=== PATIENT | female | born 1940 | race Hispanic/Latino ===

== ENCOUNTER 2017-07-07 19:18 | Emergency (ER) | payer MEDICARE, MEDICAID ==
[2017-07-07 20:11] LABS: #Basophils 0.1 thou/uL (0.0-0.2); #Eosinphils 0.1 thou/uL (0.0-0.7); #Lymphocytes 2.8 thou/uL (1.20-3.40); #Monocytes 0.7 thou/uL (0.11-0.59); #Neutrophils 3.1 thou/uL (1.40-6.50); %Basophils 1.3 % (0.0-1.0); %Eosinophils 1.2 % (0.0-10.0); %Lymphocytes 41.5 % (21.0-51.0); Hemoglobin 11.9 g/dL (12.0-16.0); Mean Corpuscular HGB CONC 35.9 g/dL (32.0-36.0); Mean Corpuscular Volume 86.4 fl (81.0-99.0); Mean Platelet Volume 7.8 fL (7.4-10.4); Platelet Count 182 thou/uL (130-400); Red Blood Cell (RBC) Count 3.84 mill/uL (4.20-5.40); White Blood Cell (WBC) Count 6.7 thou/uL (4.8-10.8)
--- NOTE | 2017-07-07 20:18 | RAD ---
PORTABLE CHEST: HISTORY: Hypertension. COMPARISON: 10/01/2015 FINDINGS: The heart size is mildly prominent. There is mild vascular engorgement. There is some interstitial prominence that may represent mild congestion. No focal infiltrate or significant effusion. POS: [facility]
[2017-07-07 20:30] LABS: CK (CPK) 52 U/L (29-168); Lipase 45 U/L (8-78)
[2017-07-07 20:33] LABS: Troponin I Less than 0.010 ng/mL (< 0.028)
[2017-07-07] MEDS ORDERED: Acetaminophen 500 MG TAB ONE (20:36)
[2017-07-07] MEDS ORDERED: Metoclopramide HCl 10 MG/2 ML VIAL ONE (20:36)
[2017-07-07] MEDS ORDERED: diphenhydrAMINE 50 MG/ML VIAL ONE (20:36)
[2017-07-07 20:38] LABS: ALT (SGPT) 8 U/L (8-55); AST (SGOT) 20 U/L (5-34); Albumin 3.7 g/dL (3.4-4.8); Alkaline Phosphatase 73 U/L (40-150); Anion Gap 14 mmol/L (10-20); BUN (Urea Nitrogen) 20 mg/dL (9.8-20.1); Bilirubin, Total 0.2 mg/dL (0.2-1.2); Calc. Creatinine Clearance 0 mL/min (70-130); Calcium 8.7 mg/dL (7.8-10.44); Carbon Dioxide 22 mmol/L (23-31); Chloride 109 mmol/L (98-107); Estimated GFR-MDRD 54; Globulin 2.6 g/dL (2.4-3.5); Glucose 93 mg/dL (83-110); Potassium 3.9 mmol/L (3.5-5.1); Protein, Total 6.3 g/dL (6.0-8.3); Sodium 141 mmol/L (136-145)
--- NOTE | 2017-07-07 21:21 | CT ---
BRAIN CT WITH IV CONTRAST: HISTORY: A 77-year-old female with a history of a headache and left-sided head and neck shoulder pain for one day. COMPARISON: 04/25/2013 FINDINGS: No focal mass or midline shift. No intraaxial or extraaxial hemorrhage. The sinuses and mastoids ar e clear of acute process. IMPRESSION: 1. No acute intracranial process. 2. No mass or bleed. POS: H
--- NOTE | 2017-07-07 21:23 | CT ---
CERVICAL SPINE CT SCAN WITHOUT IV CONTRAST: HISTORY: A 77-year-old female with a history of headache and left-sided head, neck, and shoulder pain. FINDINGS: There is some heterogeneous bony demineralization. No evidence for acute fracture or facet dislocati on. Disk osteophytosis at C5-C6 with moderate stenosis of the central canal and lateral recesses. IMPRESSION: 1. No fracture or facet dislocation. 2. Bony demineralization. 3. Spondylosis with disk osteophytosis at C5-C6 with moderate canal and lateral recess stenosis. POS: PRABHJOT
== END 2017-07-07 22:55 | disposition home or self-care (01) ==
LOC: ERS 19:18
DX: M47.22 Other spondylosis with radiculopathy, cervical region (principal); E78.5 Hyperlipidemia, unspecified; I10 Essential (primary) hypertension; Z79.899 Other long term (current) drug therapy
CPT/HCPCS: 70450; 71045; 72125; 82553; 83690; 84484; 85025; 93005; 96365; 96375; J1200; J2765

== ENCOUNTER 2018-05-14 13:33 | Inpatient (IN) | payer MEDICARE, MEDICAID ==
[~2018-05-14 13:33] MED LIST: ISOVUE-370 76%-LOCM 1 ML ONE
[2018-05-14 14:21] LABS: #Basophils 0.1 thou/uL (0.0-0.2); #Eosinphils 0.1 thou/uL (0.0-0.7); #Lymphocytes 1.2 thou/uL (1.20-3.40); #Monocytes 0.5 thou/uL (0.11-0.59); #Neutrophils 3.3 thou/uL (1.40-6.50); %Basophils 1.1 % (0.0-1.0); %Eosinophils 2.1 % (0.0-10.0); %Lymphocytes 23.7 % (21.0-51.0); %Monocytes 9.3 % (0.0-10.0); %Neutrophils 63.8 % (42.0-75.0); Hemoglobin 13.1 g/dL (12.0-16.0); Mean Corpuscular HGB CONC 33.6 g/dL (32.0-36.0); Mean Corpuscular Hemoglobin 29.2 pg (27.0-31.0); Mean Corpuscular Volume 86.9 fL (78.0-98.0); Mean Platelet Volume 7.6 fL (7.4-10.4); Platelet Count 197 thou/uL (130-400); RBC Distribution Width 11.1 % (11.5-14.5); Red Blood Cell (RBC) Count 4.48 mill/uL (4.20-5.40); White Blood Cell (WBC) Count 5.2 thou/uL (4.8-10.8)
[2018-05-14 14:42] LABS: ALT (SGPT) 12 U/L (8-55); AST (SGOT) 24 U/L (5-34); Albumin 4.3 g/dL (3.4-4.8); Alkaline Phosphatase 72 U/L (40-150); Anion Gap 10 mmol/L (10-20); BUN (Urea Nitrogen) 18 mg/dL (9.8-20.1); Bilirubin, Total 0.3 mg/dL (0.2-1.2); Calc. Creatinine Clearance 0 mL/min (70-130); Calcium 9.4 mg/dL (7.8-10.44); Carbon Dioxide 27 mmol/L (23-31); Chloride 106 mmol/L (98-107); Estimated GFR-MDRD 60; Globulin 2.7 g/dL (2.4-3.5); Glucose 127 mg/dL (83-110); Sodium 139 mmol/L (136-145)
[2018-05-14 15:21] LABS: Bilirubin Negative (Negative); Blood, Urine Negative (Negative); Clarity CLEAR (Clear); Glucose, Urine (Dipstick) Negative (Negative); Leukocyte Negative (Negative); Nitrite Negative (Negative); Protein, Urine (Dipstick) Negative (Neg-Trace); Specific Gravity, Urine 1.007 (1.002-1.036); Urobilinogen 0.2 mg/dL (0.2-1.0); pH, Urine 7.5 (5.0-9.0)
[2018-05-14] MEDS ORDERED: Ondansetron PF 4 MG/2 ML Vial ONE (15:33)
[2018-05-14] MEDS ORDERED: Meclizine HCl 25 MG TAB ONE (15:33)
--- NOTE | 2018-05-14 15:58 | RAD ---
CHEST 1 VIEW: HISTORY: Near syncope and dizziness. COMPARISON: 07/07/2017. FINDINGS: Bilateral vascular congestion, interstitial and alveolar edema, and bilateral pleural effusions with prominent heart size certainly raising concern for congestive heart failure with pulmonary edema. IMPRESSION: Postop midline sternotomy. Cardiomegaly with vascular congestion, edema, and pleural effusions, evid ence for congestive heart failure. Continued short-term followup for clearing or stability. POS: [facility]
--- NOTE | 2018-05-14 16:24 | CT ---
CT BRAIN 05/14/18 PROVIDED CLINICAL HISTORY: Dizziness. FINDINGS: Comparison 07/07/17. The ventricular system appears normal in size and morphology. There is no evidence for intracranial h emorrhage or mass effect. Chronic microvascular ischemic changes are seen involving the cerebral whit e matter. The extracranial soft tissues and osseous structures demonstrate unremarkable CT appearance . IMPRESSION: No evidence for intracranial hemorrhage or mass effect. POS: [facility]
[2018-05-14] MEDS ORDERED: Aspirin Chewable 81 MG TAB ONE (17:12)
[2018-05-14 18:41] LABS: Troponin I Less than 0.010 ng/mL (< 0.028)
[2018-05-14 21:00] LABS: Troponin I Less than 0.010 ng/mL (< 0.028)
--- NOTE | 2018-05-14 21:12 | PDOC.FPRHP ---
- History of Present Illness Chief Complaint: dizziness History of Present Illness: This is a 78 yo F who presents with a CC of near syncope and dizziness. The patient states that around 1230pm today she started feeling as if the room was spinning and her vision went black. Patient was sitting watching TV when this started. She had no NV, chest pain or palpitations at that time. The patient was able to walk to a neighbors for help. She states that she felt unbalanced when she was walking. She was able to see okay, but the spinning persisted. She states that the episode lasted about 25 min. The patient endorses feeling dizzy before, this occurred at night and would usually go away quickly. The patient has had these nightly episodes for the last 3 nights. This episode lasted much longer and was worse. The patient also endorses ringing in her ears. - Allergies/Adverse Reactions Allergies Allergy/AdvReac Type Severity Reaction Status Date / Time No Known Allergies Allergy Verified 07/24/14 03:09 - Home Medications Medication Instructions Recorded Confirmed Type Rosuvastatin [Crestor] 20 mg PO HS 07/24/14 05/14/18 History Propranolol HCl 20 mg PO DAILY 05/14/18 05/14/18 History - History PMHx: HTN, HLD PSHx: none FHx: non contributory Social: denies alcoho, tobacco, or drug use - Review of Systems General: denies: fever/chills, weight/appetite/sleep changes, night sweats Eyes: reports: vision changes ENT: denies: nasal congestion, rhinorrhea Respiratory: denies: cough, congestion, shortness of breath Cardiovascular: reports: palpitation. denies: chest pain, edema, paroxysmal nocturnal dyspnea Gastrointestinal: reports: constipation. denies: nausea, vomiting, diarrhea Genitourinary: denies: dysuria Skin: denies: rashes, lesions Musculoskeletal: denies: stiffness, swelling Neurological: reports: weakness. denies: numbness, syncope, seizure - Vital signs BP: 192/73 HR: 56 RR: 16 Tmax: 98.3 Pox: 97% on RA Wt: 74.8kg - Physical Exam Constitutional: NAD, awake, alert and oriented, well developed HEENT: normocephalic and atraumatic, PERRLA, EOMI, grossly normal vision, grossly normal hearing, normal nasal mucosa, MMM Neck: supple, FROM, trachea midline Chest: no-tender to palpation, no lesions Heart: RRR, normal S1/S2, no murmurs/rubs/gallops, pulses present, no edema Lungs: CTAB, no respiratory distress, good air movement, no rales/rhonchi, no wheezing, no retractions Abdomen: soft, non-tender, bowel sounds present, no masses/distention, no hernias Musculoskeletal: normal structure, normal tone Neurological: no focal deficit, CN II-XII intact, normal sensation, DTRs 2+ -Neurological: no nystagmus, test of skew neg, head impulse negative Skin: no rash/lesions, good turgor, capillary refill <2 seconds, no jaundice Psychiatric: normal mood and affect FMR H&P: Results - Labs Result Diagrams: 05/15/18 05:10 05/15/18 05:10 Lab results: WBC 5.2 thou/uL (4.8-10.8) 05/14/18 14:13 Hgb 13.1 g/dL (12.0-16.0) 05/14/18 14:13 Hct 39.0 % (36.0-47.0) 05/14/18 14:13 MCV 86.9 fL (78.0-98.0) 05/14/18 14:13 Plt Count 197 thou/uL (130-400) 05/14/18 14:13 Neutrophils % 63.8 % (42.0-75.0) 05/14/18 14:13 Sodium 139 mmol/L (136-145) 05/14/18 14:13 Potassium 4.0 mmol/L (3.5-5.1) 05/14/18 14:13 Chloride 106 mmol/L (98-107) 05/14/18 14:13 Carbon Dioxide 27 mmol/L (23-31) 05/14/18 14:13 BUN 18 mg/dL (9.8-20.1) 05/14/18 14:13 Creatinine 0.91 mg/dL (0.6-1.1) 05/14/18 14:13 Glucose 127 mg/dL (83-110) H 05/14/18 14:13 Calcium 9.4 mg/dL (7.8-10.44) 05/14/18 14:13 Total Bilirubin 0.3 mg/dL (0.2-1.2) 05/14/18 14:13 AST 24 U/L (5-34) 05/14/18 14:13 ALT 12 U/L (8-55) 05/14/18 14:13 Alkaline Phosphatase 72 U/L (40-150) 05/14/18 14:13 B-Natriuretic Peptide 109.4 pg/mL (0-100) H 05/14/18 14:13 Serum Total Protein 7.0 g/dL (6.0-8.3) 05/14/18 14:13 Albumin 4.3 g/dL (3.4-4.8) 05/14/18 14:13 Urine Ketones Negative mg/dL (Negative) 05/14/18 15:07 Urine Blood Negative (Negative) 05/14/18 15:07 Urine Nitrite Negative (Negative) 05/14/18 15:07 Ur Leukocyte Esterase Negative (Negative) 05/14/18 15:07 FMR H&P: A/P - Problem List (1) Near syncope Current Visit: Yes Status: Acute (2) CKD (chronic kidney disease) stage 2, GFR 60-89 ml/min Current Visit: No Status: Chronic Code(s): N18.2 - CHRONIC KIDNEY DISEASE, STAGE 2 (MILD) (3) HLD (hyperlipidemia) Current Visit: No Status: Chronic Code(s): E78.5 - HYPERLIPIDEMIA, UNSPECIFIED (4) HTN (hypertension) Current Visit: No Status: Chronic Code(s): I10 - ESSENTIAL (PRIMARY) HYPERTENSION (5) Hypertensive urgency Current Visit: Yes Status: Acute Code(s): I16.0 - HYPERTENSIVE URGENCY - Plan Near syncope w/ dizziness Unknown etiology at this time. Differential dx includes vertigo, basilar stroke , or HTN emergency. CT showing no acute process. - Will obtain CTA head/neck, MRI, and echo for possible etiology - BNP is elevated - will obtain echo - Will obtain orthostatic BP - AM Lipid panel - can consider neuro consult in AM HTN urgency - Will give SL nitro - Will allow for permissive HTN - Can give hydralazine PRN for SBP > 220 and DBP > 120 CKD - Will continue to monitor, Cr 0.91 on admission HTN - aware, continue home meds HLD - aware, continue home meds DISPO: admit to stroke, obs DVT ppx: lovenox GI ppx: none Diet: Reg CODE: FULL Case discussed with Dr. Hunter FMR H&P: Upper Level - Pertinent history 78F presents for 3 days of presyncope, with an acute worsening event at 1200 on day of admission. Exacerbated by movement. Associated by dizziness. She had not had similar symptom before. She had denies fever, headache, tinnitus, chest pain , neck pain, diarrhea, dysuria. Possibly had weight loss but unable to describe extent of this. ER physician stated that they had a positive HiNTS exam, concerning for posterior stroke. In ER, CT w/o contrast was negative. CXR is unclear. Patient has no stated surgical history but xray mention she has post-sternomy changes. There was no scaring on her chest. UA was negative. Chemistry positive for indeterminate BNP of 109. CBC wnl. Vitals BP 146/69, Pulse 51, Resp 18, Temp 98.8, O2 94% on RA Gen: Alert, oriented cheerful HEENT: Vision and hearing grossly intact. Moist mucosal membrane CV: RRR with no apparent m/g/r Resp: CTA bilat Ext: No edema Neuro: CN II-XII intact. Strength 5/5 in upper/lower ext. Tone appropriate. No cerebellar deficiency. HiNTS exam neg. A/P 1. Rule out Posterior Stroke - CTA neg - At this time, there exam no longer support posterior stroke but possibility she did have it earlier. - Considered BPPV, patient unable to tolerate janeth-halpike - Plan, obtain MRI tomorrow. Consider consult neuro - Follow up on risk factor such as HLD and optimize med management of stroke 2. Pre-syncope - Admit to stroke obs to rule out cardiac dysrhythmia - Obtain echo to work up cardiac structural disorders, - Orthostatic vital to rule out hypovolemia 3. Indeterminate BNP, rule out CHF - Will obtain echo 4. HTN Urgency - BP elevation over 180 systolic noted in ER, may be part of her pre-syncope issue and is stroke risk - Plan for permissive HTN until 1200 on 05/15/18. Then may lower BP by 20% at most, resume home medication See seo intern note for chronic issues. - Plan Date/Time: 05/14/182107 I, [Bong Meadows], have evaluated this patient and agree with findings/plan as outlined by seo intern resident. Pertinent changes/additions are listed here. Addendum - Attending - Attending Attestation Date/Time: 05/14/18 [id number] I personally evaluated the patient and discussed the management with Dr. Guerra and Dr. Meadows I agree with the History, Examination, Assessment and Plan documented above with any addition or exceptions noted below. 78 yo female with hx of HTN and CKD was transferred from [facility] ER for evaluation of central dizziness. Per ER MD exam positive findings suggestive of central over peripheral findings. Patient reports 3 day history of nightly dizziness that has been resolving quickly. Today at 1230 her vision went black and she began to feel dizzy. Described as room spinning and feeling off balanced. Last almost 30 mins. Associated symptoms include ringing or pulse in ears. Patient has presented to ER in the past for similar complaints. VS, Labs, Imaging reviewed. NAD. RRR. no murmurs CTAB no w/c/r Negative neuro exam. No nystagmus. Eyes stayed focused on tilt exams and with head movement. Vertigo: Appears peripheral on current exam. CT brain negative. CT head and neck negative ruling out aneurysm, stenosis, or thrombus. Will add MRI in am to further evaluate brain structures, infarct, masses. Unable to evaluate hearing at this time but will need audiology performed. Will treat symptoms. HTN urgency: Consider permissive HTN at this time. Will treat to keep BP around 160 tonight. Elevated BNP. Likely related to strain but will order ECHO to evaluate cardiac structure to further determine CV risk. CKD II: Stable. Adjust home meds at needed. Montior overnight. Likely d/c tomorrow after results of MRI if no significant findings identified. Will need outpatient audiology. Denzel
[2018-05-14] MEDS ORDERED: Nitroglycerin 0.4 MG TAB (25 Tab Bottle) SL PRN (21:13)
--- NOTE | 2018-05-14 22:25 | CT ---
CT ANGIOGRAM HEAD WITH IV CONTRAST AND 3D RECONSTRUCTIONS CT ANGIOGRAM NECK WITH IV CONTRAST AND 3D RECONSTRUCTIONS 05/14/18 HISTORY: Dizziness, syncope. CT HEAD: The bilateral anterior cerebral and middle cerebral arteries are patent. The distal vertebral arterie s and basilar artery are patent. The bilateral posterior cerebral and superior cerebellar arteries ap pear patent. No focal branch occlusion or significant narrowing is seen. No aneurysm is seen within t he limitations of the technique of this exam. CT ANGIOGRAM NECK: FINDINGS: There is a normal arrangement of the great vessels at the aortic arch which are patent. Bilateral sub clavian arteries are patent. The innominate artery as well as bilateral common carotid arteries are p atent. There is mild atherosclerotic calcification and plaque involving the proximal left internal carotid a rtery, but there is much less than 50% maximal stenosis involving the left internal carotid based on NASCET criteria. The right internal carotid artery is patent without focal stenosis according to NASC ET criteria. The vertebral arteries are codominant and patent bilaterally. The proximal left vertebral artery is t ortuous. The proximal thoracic esophagus does appear to demonstrate mild wall thickening although this could b e related to transient finding due to peristalsis, but this is difficult to further evaluate. Thyroid gland as well as bilateral parotid and submandibular glands have a normal CT appearance. No e nlarged lymph nodes are seen. Degenerative changes are seen at the C5-6 level related to narrowing of the intervertebral disc space and end plate degenerative changes as well as posterior osteophyte formation. IMPRESSION: 1. Patent bilateral internal carotid arteries based on NASCET criteria. 2. Patient bilateral vertebral arteries. 3. There is no focal stenosis or branch occlusion involving the [place] or vertebrobasi lar system. 4. Mild ground glass and linear densities in the upper lobes probably to atelectasis. 5. Suggested mild thickening involving the proximal thoracic esophagus, but this may be a transi ent finding and this is difficult to further evaluate on this exam. POS: PRABHJOT
[2018-05-14 23:50] VITALS: BMI 24.2
[2018-05-15] MEDS ORDERED: hydrALAZINE 20 MG/ML VIAL SLOW IVP PRN (00:19)
[2018-05-15 05:36] LABS: #Basophils 0.1 thou/uL (0.0-0.2); #Eosinphils 0.1 thou/uL (0.0-0.7); #Lymphocytes 1.7 thou/uL (1.20-3.40); #Monocytes 0.6 thou/uL (0.11-0.59); #Neutrophils 2.2 thou/uL (1.40-6.50); %Basophils 1.5 % (0.0-1.0); %Eosinophils 2.3 % (0.0-10.0); %Lymphocytes 36.9 % (21.0-51.0); %Monocytes 12.2 % (0.0-10.0); %Neutrophils 47.1 % (42.0-75.0); Hemoglobin 12.3 g/dL (12.0-16.0); Mean Corpuscular Hemoglobin 29.8 pg (27.0-31.0); Mean Corpuscular Volume 87.6 fL (78.0-98.0); Mean Platelet Volume 7.6 fL (7.4-10.4); Platelet Count 170 thou/uL (130-400); RBC Distribution Width 11.2 % (11.5-14.5); Red Blood Cell (RBC) Count 4.15 mill/uL (4.20-5.40); White Blood Cell (WBC) Count 4.6 thou/uL (4.8-10.8)
[2018-05-15 05:46] LABS: INR-International Normal Ratio 1.1; PTT 27.9 SEC (22.9-36.1)
[2018-05-15 05:56] LABS: Anion Gap 11 mmol/L (10-20); BUN (Urea Nitrogen) 14 mg/dL (9.8-20.1); Calc. Creatinine Clearance 54 mL/min (70-130); Calcium 9.4 mg/dL (7.8-10.44); Carbon Dioxide 25 mmol/L (23-31); Cardiac Risk 2.9 (Less than 4.5); Chloride 108 mmol/L (98-107); Cholesterol 122 mg/dl (< 200 Desired); Estimated GFR-MDRD 68; Glucose 80 mg/dL (83-110); HDL Cholesterol 42 mg/dL (>60 Neg Risk); LDL Cholesterol, Calculated 62 mg/dL; Potassium 3.4 mmol/L (3.5-5.1); Sodium 141 mmol/L (136-145); Triglycerides 92 mg/dL (Less than 150)
--- NOTE | 2018-05-15 06:32 | PDOC.FM ---
- Subjective Subjective: No overnight events. Feeling well. No dizziness, lightheadedness. - Objective MAR Reviewed: Yes Vital Signs & Weight: Vital Signs (12 hours) Temp Pulse Resp BP Pulse Ox 05/15/18 04:00 98.2 F 60 20 147/67 H 99 05/15/18 00:00 97.6 F 52 L 20 147/70 H 96 05/14/18 23:20 96 05/14/18 22:45 97.5 F L 51 L 18 198/86 H 95 Weight Weight 60.044 kg Result Diagrams: 05/15/18 05:10 05/15/18 05:10 Phys Exam - Physical Examination Constitutional: NAD HEENT: moist MMs Neck: supple Respiratory: no wheezing, clear to auscultation bilateral Cardiovascular: RRR, no significant murmur Gastrointestinal: soft, non-tender, positive bowel sounds Musculoskeletal: no edema Neurological: moves all 4 limbs Psychiatric: normal affect Skin: normal turgor Dx/Plan (1) Hypertensive urgency Code(s): I16.0 - HYPERTENSIVE URGENCY Status: Acute (2) Near syncope Status: Acute (3) Atypical angina Code(s): I20.8 - OTHER FORMS OF ANGINA PECTORIS Status: Acute (4) CKD (chronic kidney disease) stage 2, GFR 60-89 ml/min Code(s): N18.2 - CHRONIC KIDNEY DISEASE, STAGE 2 (MILD) Status: Chronic (5) HLD (hyperlipidemia) Code(s): E78.5 - HYPERLIPIDEMIA, UNSPECIFIED Status: Chronic (6) HTN (hypertension) Code(s): I10 - ESSENTIAL (PRIMARY) HYPERTENSION Status: Chronic (7) Normocytic anemia Code(s): D64.9 - ANEMIA, UNSPECIFIED Status: Chronic - Plan Plan: Vertigo vs basilar stroke - CTA neg - Pt unable to tolerate janeth-halpike. Consider BPPV - MRI & Echo ordered - ASCVD: 34.8%, mod intensity statin indicated Pre-Sycope - UA neg. Trops neg x3. - Echo ordered - Orthostatics Elevated BNP - No known hx of CHF - Echo ordered - CXR: Cardiomegaly with vascular congestion, edema and pleural effusions. Evidence for CHF. - CTA with mild ground glass & linear opacities in upper lobes likely atelectasis HTN urgency - Permissive HTN until 1200 today - Hydralazine PRN for SBP > 220 and DBP > 120. Mild thickening of proximal thoracic esophagus on CTA - Possibly transient difficult to eval on exam. Pt asymptomatic CKD - Will continue to monitor, Cr 0.91 on admission HTN - Continue home meds HLD - Continue home meds Cod Status: FULL DVT ppx: Lovenox
--- NOTE | 2018-05-15 07:47 | RAD ---
PORTABLE CHEST: HISTORY: Hospital followup. COMPARISON: 05/14/2018. FINDINGS: Lungs show no focal infiltrate. Vascular and interstitial markings are mildly prominent. No acute i nterval change noted. POS: [facility]
[2018-05-15] MEDS: Acetaminophen 325 MG TAB PO PRN ×3 (09:03→21:46)
[2018-05-15] MEDS: Aspirin 81 mg Enteric Coated Tablet PO SCH (09:03)
[2018-05-15] MEDS: Enoxaparin Sodium 40 MG/0.4 ML SYRINGE SC SCH (09:03)
--- NOTE | 2018-05-15 12:09 | MRI ---
MRI BRAIN WITHOUT CONTRAST: HISTORY: Dizziness. Stroke. CORRELATION: The previous day's noncontrast CT scan. FINDINGS: No restricted diffusion is seen. No evidence of infarct, hemorrhage, midline shift, or abnormal extr aaxial fluid collections are identified. There are multiple foci of T2 prolongation in the periventri cular white matter, consistent with chronic small vessel ischemic disease. There is mild mucosal dis ease in the paranasal sinuses. IMPRESSION: No evidence of acute intracranial process. POS: [facility]
--- NOTE | 2018-05-15 13:24 | PRG ---
DATE OF SERVICE: 05/15/2018 Ms. Barone is a 78-year-old lady who was admitted with a profound episode of vertigo and dizziness. We are in the process now of obtaining an MRI to ascertain whether this could be a possible cerebellar stroke. Her labs are all normal with a hemoglobin of 13.1, hematocrit 39, and white count 5900. Serum electrolytes are all normal. Glucose is 127. Her initial brain CT and CT angiography are so far negative. Job ID: [id number]
[2018-05-15] MEDS ORDERED: Melatonin 3 MG TAB PO PRN (20:29)
[2018-05-15] MEDS ORDERED: diphenhydrAMINE 25 MG CAP PO PRN (20:29)
[2018-05-15] MEDS ORDERED: Atorvastatin Calcium 10 MG TAB PO SCH (21:00)
[2018-05-16 04:20] VITALS: TEMP 98.3
--- NOTE | 2018-05-16 05:51 | PDOC.FM ---
- Subjective Subjective: No overnight events. Symptoms have resolved. Slept well overnight. Denies dizziness, lightheadedness, syncope. She take Propranolol for migraines. Has never been told she has high blood pressure before. - Objective MAR Reviewed: Yes Vital Signs & Weight: Vital Signs (12 hours) Temp Pulse Resp BP Pulse Ox 05/16/18 04:00 98.3 F 67 18 131/61 97 05/16/18 00:00 98.2 F 67 18 180/77 H 97 05/15/18 20:00 98.3 F 66 18 141/70 H 94 L Weight Weight 60.044 kg I&O: 05/14/18 05/15/18 05/16/18 06:59 06:59 06:59 Intake Total 830 Balance 830 Result Diagrams: 05/15/18 05:10 05/15/18 05:10 Phys Exam - Physical Examination Constitutional: NAD HEENT: moist MMs Neck: supple Respiratory: no wheezing, clear to auscultation bilateral Cardiovascular: RRR, no significant murmur Gastrointestinal: soft, non-tender, positive bowel sounds Musculoskeletal: no edema Neurological: moves all 4 limbs Psychiatric: normal affect, A&O x 3 Skin: normal turgor Dx/Plan (1) Hypertensive urgency Code(s): I16.0 - HYPERTENSIVE URGENCY Status: Acute (2) Near syncope Status: Acute (3) Atypical angina Code(s): I20.8 - OTHER FORMS OF ANGINA PECTORIS Status: Acute (4) CKD (chronic kidney disease) stage 2, GFR 60-89 ml/min Code(s): N18.2 - CHRONIC KIDNEY DISEASE, STAGE 2 (MILD) Status: Chronic (5) HLD (hyperlipidemia) Code(s): E78.5 - HYPERLIPIDEMIA, UNSPECIFIED Status: Chronic (6) HTN (hypertension) Code(s): I10 - ESSENTIAL (PRIMARY) HYPERTENSION Status: Chronic (7) Normocytic anemia Code(s): D64.9 - ANEMIA, UNSPECIFIED Status: Chronic - Plan Plan: Vertigo vs basilar stroke - CTA neg - MRI no acute process - Echo: EF 50-55%, Diastolic dysfunction, Moderate MR & AR. Sclerotic Aortic valve - ASCVD: 34.8%, mod intensity statin started Pre-Sycope - UA neg. Trops neg x3. - Echo: EF 50-55%, Diastolic dysfunction, Moderate MR & AR. Sclerotic Aortic valve - Slightly positive, systolic decreased 21mmHg HFpEF - Consulted HF team - Will start ARB, pt currently on propranolol daily for migraines - Initial CXR read error, pts CXR vascular markings and heart size upper limits of normal. HTN urgency, resolved - Starting Losartan Mild thickening of proximal thoracic esophagus on CTA - Possibly transient difficult to eval on exam. Pt asymptomatic CKD - Continue to monitor HTN - Continue home meds Migraines - Continue Propranolol HLD - Continue home meds Cod Status: FULL DVT ppx: Lovenox
[2018-05-16 08:14] VITALS: BP 148/70
[2018-05-16] MEDS ORDERED: Propranolol HCl 20 MG TAB PO SCH (09:00)
[2018-05-16] MEDS ORDERED: Losartan 25 MG TAB PO SCH (09:00)
[2018-05-16] MEDS: Acetaminophen 325 MG TAB PO PRN (09:06)
[2018-05-16] MEDS: Enoxaparin Sodium 40 MG/0.4 ML SYRINGE SC SCH (09:06)
[2018-05-16] MEDS: Aspirin 81 mg Enteric Coated Tablet PO SCH (09:06)
--- NOTE | 2018-05-16 11:34 | PRG ---
DATE OF SERVICE: 05/16/2018 Ms. Barone is awake and alert this morning. She is sitting in her chair, in no distress. Her workup for possible TIA, including CT angiography of the head and neck, echocardiogram, and brain MRI showed no evidence of TIA or stroke. We are adjusting her blood pressure medications. Her echocardiogram does show suggestion of diastolic dysfunction and moderate mitral regurgitation. These issues can also be followed as an outpatient. From our standpoint, she is ready for discharge, having had a negative stroke TIA workup. Job ID: [id number]
[2018-05-16] MEDS ORDERED: Rosuvastatin 20 MG TAB PO SCH (21:00)
--- NOTE | 2018-05-17 00:41 | DIS ---
DATE OF ADMISSION: 05/14/2018 DATE OF DISCHARGE: 05/16/2018 RESIDENT: Natalie Sandoval MD, PGY-1. CONSULTS: None. PROCEDURES: 1. CTA patent bilateral internal carotid arteries based on NASCET criteria. The patient have bilateral vertebral arteries. There is no focal stenosis or branch occlusion involving the [place] or vertebrobasilar system. Mild ground glass and linear densities in the upper lobes, probably due to atelectasis. Suggested mild thickening involving the proximal thoracic esophagus, this may be a transient finding and it is difficult to further evaluate on this exam. 2. Brain CT, no evidence for intracranial hemorrhage or mass effect. 3. Chest x-ray, the heart size is upper normal and stable. Lungs appear clear. The vascular markings are upper normal and stable. No acute interval change. 4. Brain MRI, no evidence of acute intracranial process. 5. Chest x-ray of lungs show no focal infiltrate. Vascular and interstitial markings are mildly prominent. No acute interval change noted. 6. Echocardiogram, ejection fraction of 50% to 55%. E/A flow reversal noted. Suggestive of diastolic dysfunction. Moderate mitral regurgitation. Aortic valve sclerotic. Moderate aortic regurgitation. Mild tricuspid and pulmonic regurgitation present. PRIMARY DIAGNOSES: 1. Vertigo. 2. Presyncope. SECONDARY DIAGNOSES: 1. Heart failure with preserved ejection fraction. 2. Hypertensive urgency, resolved. 3. Mild thickening of the proximal thoracic esophagus on CTA. 4. Chronic kidney disease. 5. Hypertension. 6. Migraines. 7. Hyperlipidemia. DISCHARGE MEDICATIONS: 1. Losartan 25 mg daily. 2. Propranolol 20 mg daily. 3. Crestor 20 mg at bedtime. HISTORY OF PRESENT ILLNESS/HOSPITAL COURSE: Ms. Barone is a 78-year-old female who presented to the ED with chief complaint of syncope and dizziness. She was noted to have a positive HINTS exam in the ED. Upon admission, primary team noted a negative HINTS exam. She was noted to be in hypertensive urgency, blood pressure 192/73. She was given sublingual nitroglycerin, but allowed for permissive hypertension for the first 24 hours and did not require any p.r.n. hydralazine for systolic blood pressure greater than 220 and diastolic blood pressure greater than 120. Labs were notable at admission for elevated BNP 109.4. Troponin negative x3. EKG with no ST-segment changes. CTA and MRI showed no acute intracranial process. Her ASCVD risk score 34.8%. Moderate intensity statin was initiated. She had a new diagnosis of heart failure with preserved ejection fraction. Extensive time was spent with the patient using procedures nurse to explain this diagnosis as well as importance of followup. She is currently on propranolol daily for migraine, and was started for blood pressure control. She was noted to have mild thickening of the proximal thoracic esophagus on CTA. The patient is asymptomatic. This could be followed up if she develops symptoms. Her chronic medical problems, CKD, hypertension, migraine, hyperlipidemia were managed with home medications. DISPOSITION: Stable. DISCHARGE INSTRUCTIONS: LOCATION: Home. DIET: Heart healthy. ACTIVITY: No restriction. FOLLOWUP: Follow up with PCP Dr. Vazquez within 7 days. Job ID: [id number] [facility]
--- NOTE | 2018-05-17 12:03 | EKG ---
Test Reason : Blood Pressure : / mmHG Vent. Rate : 061 BPM Atrial Rate : 061 BPM P-R Int : 142 ms QRS Dur : 086 ms QT Int : 404 ms P-R-T Axes : 005 -13 037 degrees QTc Int : 406 ms Normal sinus rhythm Inferior infarct , age undetermined Abnormal ECG Confirmed by DILIP RUIZ DO ([id number]), visual effects editor KAYLEE NI ([id number]) on 05/17/2018 12:03:09 PM Referred By: Confirmed By:DILIP RUIZ DO
== END 2018-05-16 14:25 | disposition home or self-care (01) | DRG 305 ==
LOC: ERS 13:33 → 2SE 22:28
PROVIDERS: ADMIT Student in an Organized Health Care Education/Training Program; ATTEND Student in an Organized Health Care Education/Training Program
DX: I16.0 Hypertensive urgency (principal); I12.9 Hypertensive chronic kidney disease with stage 1 through stage 4 chronic kidney disease, or unspecified chronic kidney disease; N18.2 Chronic kidney disease, stage 2 (mild); E78.5 Hyperlipidemia, unspecified; D64.9 Anemia, unspecified; I20.8 Other forms of angina pectoris; G43.909 Migraine, unspecified, not intractable, without status migrainosus
CPT/HCPCS: 36415; 70450; 70496; 70498; 70551; 71045; 80048; 80053; 80061; 81003; 83880; 84484; 85025; 85610; 85730; 93005; 93306; 96361; 96374; J1650; J2405; Q0163; Q9966

== ENCOUNTER 2018-07-29 06:48 | Outpatient (CLI) | payer MEDICARE, MEDICAID ==
--- NOTE | 2018-07-29 07:55 | ULT ---
GALLBLADDER ULTRASOUND: HISTORY: Right upper quadrant abdominal pain FINDINGS: The liver demonstrates homogeneous echotexture without focal mass or intrahepatic biliary ductal dila tation. No gallstones, gallbladder wall thickening or pericholecystic fluid are seen. The right kidney and pancreas are normal. The common duct [id number] in diameter. No free fluid is seen in the Mark's pouch. IMPRESSION: Normal exam.
== END 2018-07-29 06:49 | disposition home or self-care (01) ==
LOC: BICULT 06:48
PROVIDERS: ATTEND Family Medicine
DX: R10.13 Epigastric pain (principal)
CPT/HCPCS: 76705

== ENCOUNTER 2018-08-13 12:33 | Outpatient (CLI) | payer MEDICARE, MEDICAID ==
--- NOTE | 2018-08-13 13:47 | CT ---
CT ABDOMEN AND PELVIS WITH ORAL AND IV CONTRAST: HISTORY: Left-sided abdominal pain FINDINGS: There are dependent changes in the lung bases. No calcified gallstones are seen. The liver, spleen, pancreas, adrenal glands and kidneys are normal. No free air or lymphadenopathy seen in the abdomen or pelvis. There is trace fluid in the pelvis. The patient is post hysterectomy. The small bowel loops are not abnormally dilated. There is sigmoid diverticulosis. Vascular calcifica tions are present without evidence of aneurysmal dilatation of the abdominal aorta. There are degenerative changes in the spine. IMPRESSION: 1. Trace fluid in the pelvis. 2. Sigmoid diverticulosis.
== END 2018-08-13 12:34 | disposition home or self-care (01) ==
LOC: BICCT 12:33
PROVIDERS: ATTEND Internal Medicine
DX: R10.12 Left upper quadrant pain (principal); R10.32 Left lower quadrant pain; K57.30 Diverticulosis of large intestine without perforation or abscess without bleeding
CPT/HCPCS: 74177; 82565

== ENCOUNTER 2018-11-08 02:21 | Emergency (ER) | payer MEDICARE, OTHER ==
[2018-11-08 03:50] LABS: Bacteria/HPF None Seen HPF (None Seen); Bilirubin Negative (Negative); Blood, Urine 3+ (Negative); Clarity Turbid (Clear); Glucose, Urine (Dipstick) Normal (Negative); Leukocyte 500 Leu/uL (Negative); Nitrite Negative (Negative); Protein, Urine (Dipstick) 30 mg/dL (Neg-Trace); RBC/HPF Greater than 50 HPF (0-3); Squamous Epithelial None Seen HPF (0-3); Urobilinogen Normal mg/dL (Less than 2); WBC/HPF Greater than 50 HPF (0-3)
[2018-11-08 04:15] LABS: #Lymphocytes 1.4 thou/uL (1.20-3.40); #Monocytes 0.5 thou/uL (0.11-0.59); %Basophils 0.4 % (0.0-1.0); %Eosinophils 0.5 % (0.0-10.0); %Lymphocytes 17.6 % (21.0-51.0); %Monocytes 6.2 % (0.0-10.0); %Neutrophils 75.3 % (42.0-75.0); Hemoglobin 12.3 g/dL (12.0-16.0); Mean Corpuscular HGB CONC 35.4 g/dL (32.0-36.0); Mean Corpuscular Hemoglobin 30.8 pg (27.0-31.0); Mean Corpuscular Volume 86.8 fL (78.0-98.0); Mean Platelet Volume 8.3 fL (7.4-10.4); Platelet Count 144 thou/uL (130-400); Red Blood Cell (RBC) Count 3.99 mill/uL (4.20-5.40)
[2018-11-08 04:34] LABS: ALT (SGPT) 11 U/L (8-55); AST (SGOT) 19 U/L (5-34); Albumin 4.2 g/dL (3.4-4.8); Alkaline Phosphatase 62 U/L (40-150); Anion Gap 11 mmol/L (10-20); BUN (Urea Nitrogen) 13 mg/dL (9.8-20.1); Bilirubin, Total 0.5 mg/dL (0.2-1.2); Calc. Creatinine Clearance 0 mL/min (70-130); Calcium 9.6 mg/dL (7.8-10.44); Carbon Dioxide 25 mmol/L (23-31); Chloride 107 mmol/L (98-107); Estimated GFR-MDRD 70; Globulin 2.8 g/dL (2.4-3.5); Glucose 99 mg/dL (83-110); Potassium 3.9 mmol/L (3.5-5.1); Sodium 139 mmol/L (136-145)
--- NOTE | 2018-11-08 07:38 | CT ---
CT OF THE ABDOMEN AND PELVIS WITH IV CONTRAST: INDICATION: Suprapubic abdominal pain with hematuria. COMPARISON: Prior exam dated 08/13/2018. FINDINGS: There is bibasilar atelectasis. There is a stable suspected cyst within the right hepatic dome. The pancreas, adrenal glands, and spleen appear within normal limits. No focal renal lesion is evident. No definite hydronephrosis is noted. No free fluid or enlarged lymph nodes are noted. There is a normal appendix in the right lower quadrant. The bladder is mildly distended. There is mild free fluid in the pelvis slightly more pronounced than on the prior exam. There is scattered colonic diverticula without evidence of active diverticulitis. The small bowel is normal-appearing. The superior end plate compression abnormality of L2 is stable-appearing. Mild wedge compression abn ormality of T10 is stable. There is diffuse osteopenia. IMPRESSION: 1. Mild distention of the bladder. 2. Mild free fluid in the pelvis. 3. Colonic diverticulosis without evidence of active diverticulitis. POS: [facility]
[2018-11-08] MEDS ORDERED: Iopamidol 370 76% 100 ML VIAL ONE (10:33)
== END 2018-11-08 06:08 | disposition home or self-care (01) ==
LOC: ERS 02:21
DX: N39.0 Urinary tract infection, site not specified (principal); E78.5 Hyperlipidemia, unspecified; I10 Essential (primary) hypertension; Z79.899 Other long term (current) drug therapy
CPT/HCPCS: 74177; 80053; 81003; 81015; 85025; Q9967

== ENCOUNTER 2019-04-11 11:23 | Observation (INO) | payer MEDICARE, MEDICAID ==
--- NOTE | 2019-04-11 11:46 | RAD ---
EXAM: Portable chest PROVIDED CLINICAL HISTORY: Chest pain COMPARISON: 05/15/2018 FINDINGS: Cardiac and mediastinal silhouette is within normal limits. No focal consolidation, pleural fluid or pneumothorax evident. Emphysematous changes are redemonstrated. IMPRESSION: No evidence for an acute cardiopulmonary process.
[2019-04-11 12:12] LABS: #Basophils 0.1 thou/uL (0.0-0.2); #Lymphocytes 1.8 thou/uL (1.20-3.40); #Monocytes 0.3 thou/uL (0.11-0.59); %Basophils 1.3 % (0.0-1.0); %Eosinophils 1.1 % (0.0-10.0); %Lymphocytes 42.4 % (21.0-51.0); %Monocytes 7.5 % (0.0-10.0); %Neutrophils 47.7 % (42.0-75.0); Hemoglobin 13.2 g/dL (12.0-16.0); Mean Corpuscular HGB CONC 35.1 g/dL (32.0-36.0); Mean Corpuscular Hemoglobin 30.6 pg (27.0-31.0); Platelet Count 162 thou/uL (130-400); RBC Distribution Width 11.4 % (11.5-14.5); Red Blood Cell (RBC) Count 4.31 mill/uL (4.20-5.40); White Blood Cell (WBC) Count 4.1 thou/uL (4.8-10.8)
[2019-04-11 12:34] LABS: ALT (SGPT) 8 U/L (8-55); AST (SGOT) 17 U/L (5-34); Albumin 4.1 g/dL (3.4-4.8); Alkaline Phosphatase 62 U/L (40-110); Anion Gap 9 mmol/L (10-20); BUN (Urea Nitrogen) 13 mg/dL (9.8-20.1); Bilirubin, Total 0.4 mg/dL (0.2-1.2); Calc. Creatinine Clearance 0 mL/min (70-130); Carbon Dioxide 28 mmol/L (23-31); Chloride 108 mmol/L (98-107); Estimated GFR-MDRD 57; Globulin 2.6 g/dL (2.4-3.5); Glucose 90 mg/dL (83-110); Lipase 31 U/L (8-78); Protein, Total 6.7 g/dL (6.0-8.3); Sodium 141 mmol/L (136-145)
[2019-04-11] MEDS ORDERED: Morphine 4 MG/ML VIAL ONE (12:45)
[2019-04-11] MEDS ORDERED: Famotidine/PF 20 mg/2ml Vial ONE (12:45)
[2019-04-11] MEDS ORDERED: Ondansetron PF 4 MG/2 ML Vial ONE (12:45)
--- NOTE | 2019-04-11 13:39 | CT ---
CT OF BRAIN PERFORMED WITHOUT CONTRAST ENHANCEMENT: HISTORY: Headache. COMPARISON: A 05/04/2018 study. FINDINGS: Ventricular and cisternal system shows age-appropriate change. Decreased attenuation of the perivent ricular white matter consistent with some chronic white matter change. There are no signs of intrace rebral hemorrhage or extraaxial fluid collections. The mastoid air cells and visualized sinuses are clear. IMPRESSION: No acute intracranial abnormalities. POS: [facility]
--- NOTE | 2019-04-11 14:00 | CT ---
CT OF ABDOMEN AND PELVIS PERFORMED WITH CONTRAST ENHANCEMENT: HISTORY: Left-sided abdomen pain. COMPARISON: 11/08/2018 study. FINDINGS: The lung bases are clear. The liver, spleen, pancreas, and gallbladder regions appear unremarkable. Right and left adrenal glands and right and left kidneys are normal in appearance. There is no signi ficant periaortic or mesenteric adenopathy. CT OF PELVIS PERFORMED WITH CONTRAST ENHANCEMENT: There is colonic diverticulosis mainly confined to the distal descending and sigmoid colon region. N o evidence for diverticulitis. No free fluid. The appendix is normal. The bladder is mildly disten ded. IMPRESSION: 1. Mild colonic diverticulosis. 2. Mildly distended bladder. POS: [facility]
[2019-04-11] MEDS ORDERED: Aspirin Chewable 81 MG TAB ONE (15:24)
--- NOTE | 2019-04-11 15:24 | PDOC.FPRHP ---
- History of Present Illness Chief Complaint: Chest pain, headache, and LLQ pain History of Present Illness: Ms. Barone is a pleasant 79yoF who presented to the ED for symptoms of chest and headache that began last night around 10pm. She had some dizziness, palpitations and a fullness in her ears. At the present moment she is symptom free. She states that the headache came first then the chest pain. Her chest pain was more on the left side and was radiating down her arm. She was walking when the pain began. Her headache is in the front, it is worsened with lights. She endorses blurred vision. She has had a stress test 5 years ago and it was normal. She had similar symptoms 1 year ago and was admitted to the hospital at that time. She did not have any procedures at that time. Lives at home with son. ED Course: ASA 324, Morphine 4, Zofran 4, Pepcid 20 - Allergies/Adverse Reactions Allergies Allergy/AdvReac Type Severity Reaction Status Date / Time No Known Allergies Allergy Verified 07/24/14 03:09 - Home Medications Medication Instructions Recorded Confirmed Type Rosuvastatin [Crestor] 20 mg PO HS 07/24/14 04/11/19 History Propranolol HCl 20 mg PO DAILY 05/14/18 04/11/19 History Losartan [Cozaar] 25 mg PO DAILY #30 tab 05/16/18 04/11/19 Rx Dicyclomine [Bentyl] 10 mg PO QID PRN 04/11/19 04/11/19 History - History PMHx: HTN HLD Arthritis PSHx: None FHx: HLD, HTN Social: denies alcohol, tobacco, or drug use - Review of Systems General: denies: fever/chills, weight/appetite/sleep changes, night sweats, fatigue Eyes: reports: vision changes. denies: eye pain ENT: denies: nasal congestion, rhinorrhea Respiratory: denies: cough, congestion, shortness of breath, exercise intolerance Cardiovascular: reports: chest pain, palpitation. denies: edema, paroxysmal nocturnal dyspnea, orthopnea Gastrointestinal: denies: nausea, vomiting, diarrhea, constipation Genitourinary: denies: incontinence, dysuria Skin: denies: rashes, lesions Musculoskeletal: denies: pain, tenderness, stiffness Neurological: denies: numbness, syncope, weakness - Vital signs BP: 172/75, MAP: 107, Pulse: 51, Resp: 13, O2 sat: 98 on (Room Air), Time: 2019 13:23. - Physical Exam Constitutional: NAD, awake, alert and oriented, well developed HEENT: normocephalic and atraumatic, PERRLA, EOMI, conjunctiva clear, grossly normal vision, grossly normal hearing, MMM Neck: supple, FROM, trachea midline Heart: RRR, normal S1/S2, no murmurs/rubs/gallops Lungs: CTAB, no respiratory distress, good air movement, no rales/rhonchi, no wheezing Abdomen: soft, non-tender, bowel sounds present Musculoskeletal: normal structure, normal tone Neurological: no focal deficit, CN II-XII intact Skin: no rash/lesions, good turgor Heme/Lymphatic: no unusual bruising or bleeding, no purpura Psychiatric: normal mood and affect, good judgment and insight, intact recent and remote memory FMR H&P: Results - Labs Result Diagrams: 04/11/19 11:57 04/11/19 11:57 Lab results: WBC 4.1 thou/uL (4.8-10.8) L 04/11/19 11:57 Hgb 13.2 g/dL (12.0-16.0) 04/11/19 11:57 Hct 37.5 % (36.0-47.0) 04/11/19 11:57 MCV 87.0 fL (78.0-98.0) 04/11/19 11:57 Plt Count 162 thou/uL (130-400) 04/11/19 11:57 Neutrophils % 47.7 % (42.0-75.0) 04/11/19 11:57 Sodium 141 mmol/L (136-145) 04/11/19 11:57 Potassium 4.0 mmol/L (3.5-5.1) 04/11/19 11:57 Chloride 108 mmol/L (98-107) H 04/11/19 11:57 Carbon Dioxide 28 mmol/L (23-31) 04/11/19 11:57 BUN 13 mg/dL (9.8-20.1) 04/11/19 11:57 Creatinine 0.94 mg/dL (0.6-1.1) 04/11/19 11:57 Glucose 90 mg/dL (83-110) 04/11/19 11:57 Calcium 9.0 mg/dL (7.8-10.44) 04/11/19 11:57 Total Bilirubin 0.4 mg/dL (0.2-1.2) 04/11/19 11:57 AST 17 U/L (5-34) 04/11/19 11:57 ALT 8 U/L (8-55) 04/11/19 11:57 Alkaline Phosphatase 62 U/L (40-110) 04/11/19 11:57 Serum Total Protein 6.7 g/dL (6.0-8.3) 04/11/19 11:57 Albumin 4.1 g/dL (3.4-4.8) 04/11/19 11:57 Lipase 31 U/L (8-78) 04/11/19 11:57 - EKG Interpretation EKG: Sinus bradycardia - Radiology Interpretation CT scan - abdomen Status: report reviewed by me (IMPRESSION: 1. Mild colonic diverticulosis. 2. Mildly distended bladder.) CT scan - head Status: report reviewed by me (FINDINGS: Ventricular and cisternal system shows age-appropriate change. Decreased attenuation of the perivent ricular white matter consistent with some chronic white matter change. There are no signs of intrace rebral hemorrhage or extraaxial fluid collections. The mastoid air cells and visualized sinuses are clear. IMPRESSION: No acute intracranial abnormalities.) Chest x-ray Status: report reviewed by me (IMPRESSION: No evidence for an acute cardiopulmonary process.) FMR H&P: A/P - Problem List (1) Chest pain Current Visit: Yes Status: Acute Code(s): R07.9 - CHEST PAIN, UNSPECIFIED (2) HLD (hyperlipidemia) Current Visit: No Status: Chronic Code(s): E78.5 - HYPERLIPIDEMIA, UNSPECIFIED (3) HTN (hypertension) Current Visit: No Status: Chronic Code(s): I10 - ESSENTIAL (PRIMARY) HYPERTENSION - Plan Chest pain, ACS R/o - story slightly suspicious, heart score of 4, 5 years since last stress test. - Will admit to trend troponins and perform a stress test in the morning. HFpEF, diastolic dysfunction - echo was May 2018 showed EF 50-55% and diastolic disfunction - Does not appear fluid overloaded. Will monitor I/O. HTN - will continue home medications - add Hydralazine prn for SBP > 180 HLD - Continue home medications Disposition/LOS: Dispo: stable, obs. Likely d/c tomorrow if stress test is normal. Code: Full VTE ppx: lovenox FMR H&P: Upper Level - Plan Date/Time: 04/11/19 0146 I, Kedar Sanchez, have evaluated this patient and agree with findings/plan as outlined by human resources intern resident. Pertinent changes/additions are listed here. 79 yo F with pmh of HTN presents for chest pain that started last night after eating. it has since resolved. Pain was worsened on exertion and radiated down her left arm. she also had some intermittent palpitations. On exam vitals show sinus bradycardia, otherwise normal cardiopulm exam. EKG: sinus symone A/P CP likely 2/2 GI A- cp somewhat concerning for ACS. Considering age and risk factors this pt merits workup. EKG shows sinus symone, no T changes. trops negative so far. Last echo was May 2018 showed EF 50-55% and diastolic disfunction. Last stress was in 2014 and was wnl. pain currently resolved P- trend trops -s/p ASA -plan for npo at midnight, stress in AM HFpEF A- read from echo as listed above. pt is not in exacerbation P- monitor for s/s of fluid overload sinus bradycardia A- likely 2/2 home BB P- hold home med for now. possibly restart after stress test at reduced dose. all other problems per human resources intern note as listed above CODE: FULL Addendum - Attending - Attending Attestation Date/Time: 04/12/19 9828 I personally evaluated the patient and discussed the management with the team. I agree with the History, Examination, Assessment and Plan documented above with any addition or exceptions noted below. Hold BB, stress test, consider cards pending eval.
[2019-04-11 15:40] LABS: Troponin I Less than 0.010 ng/mL (< 0.028)
[2019-04-11] MEDS ORDERED: Ondansetron ODT 4 MG TAB PO PRN (16:40)
[2019-04-11] MEDS ORDERED: Senokot S 8.6-50 MG TAB PO PRN (16:40)
[2019-04-11] MEDS ORDERED: Calcium Carbonate 500 MG ChewTAB PO PRN (16:40)
[2019-04-11 17:42] VITALS: BMI 22.8
[2019-04-11 18:24] LABS: Troponin I Less than 0.010 ng/mL (< 0.028)
[2019-04-11] MEDS ORDERED: Rosuvastatin 20 MG TAB PO SCH (21:00)
[2019-04-11] MEDS: Acetaminophen 325 MG TAB PO PRN (21:19)
--- NOTE | 2019-04-12 05:54 | PDOC.FM ---
- Subjective Subjective: Doing well this morning, no acute events overnight. States she still has mild sub zyphoid pain, worse with movement. No nausea or vomiting, no SOB or abdominal pain. No radiation of the pain. Eager for stress this AM. - Objective MAR Reviewed: Yes Vital Signs & Weight: Vital Signs (12 hours) Temp Pulse Resp BP Pulse Ox 04/12/19 04:15 98.1 F 60 15 131/62 97 04/11/19 23:00 98.3 F 58 L 15 160/73 H 96 04/11/19 19:35 97.4 F L 56 L 14 178/81 H 95 Weight Weight 56.654 kg Result Diagrams: 04/11/19 11:57 04/11/19 11:57 EKG Reviewed by me: Yes (Tele: NSR, no acute events) Phys Exam - Physical Examination Constitutional: NAD (resting comfortably) HEENT: moist MMs Neck: supple Respiratory: no wheezing, no rales, no rhonchi, clear to auscultation bilateral Cardiovascular: RRR, no significant murmur, no rub Gastrointestinal: soft, non-tender, no distention, positive bowel sounds Musculoskeletal: no edema Neurological: moves all 4 limbs Psychiatric: normal affect, A&O x 3 Dx/Plan (1) Chest pain Code(s): R07.9 - CHEST PAIN, UNSPECIFIED Status: Acute (2) HLD (hyperlipidemia) Code(s): E78.5 - HYPERLIPIDEMIA, UNSPECIFIED Status: Chronic (3) HTN (hypertension) Code(s): I10 - ESSENTIAL (PRIMARY) HYPERTENSION Status: Chronic - Plan Plan: 79yo F with h/o HFpEF, HTN, HLD presents with episodes of atypical chest pain. #Atypical Chest pain, ACS R/o - story slightly suspicious, heart score of 4, 5 years since last stress test. - sxs since mostly resolved with only mild sub zyphoid pain, no acute events on tele, EKG no acute ST or T wave changes - Trops negative x3 - Plan for NM stress this AM - suspected GI vs MSK in nature, will await stress results #HFpEF - echo May 2018 showed EF 50-55% and diastolic disfunction - Does not appear fluid overloaded at this time. Will monitor I/O. #HTN - continue home medications, may benefit from spirinolactone for HFpEF and HTN not at goal HLD - Continue home medications, lipid panel pending this AM PCP: RUDOLPH Daly Code: Full VTE: Lovenox Diet: NPO for stress IVF: SL Dispo: Admit to tele obs for ACS r/o. Trops negative x3 no EKG changes. Stress this AM. Dispo pending stress results. Addendum - Attending - Attending Attestation Date/Time: 04/12/19 1644 I personally evaluated the patient and discussed the management with Dr. Salas. I agree with the History, Examination, Assessment and Plan documented above with any addition or exceptions noted below.
[2019-04-12 06:00] LABS: Cardiac Risk 2.6 (Less than 4.5)
[2019-04-12] MEDS ORDERED: Enoxaparin Sodium 40 MG/0.4 ML SYRINGE SC SCH (09:00)
[2019-04-12] MEDS ORDERED: Losartan 25 MG TAB PO SCH (09:00)
[2019-04-12] MEDS: Acetaminophen 325 MG TAB PO PRN (13:42)
--- NOTE | 2019-04-12 15:06 | NM ---
MYOCARDIAL PERFUSION SCAN WITH SPECT IMAGING: HISTORY: Chest pain. Hypertension. TECHNIQUE: Examination is performed using 27 millicuries technetium 99m sestamibi on the stress and 10.5 millicu danya on the resting exam. FINDINGS: This shows a normal distribution of the radiopharmaceutical. No signs of ischemia or scar. WALL MOTION: There is symmetric contractility to the ventricle. LEFT VENTRICULAR EJECTION FRACTION: The calculated left ventricular ejection fraction is 71%. IMPRESSION: Unremarkable myocardial perfusion scan. POS: [facility]
[2019-04-12 15:26] VITALS: BP 164/74; TEMP 97.3
--- NOTE | 2019-04-13 02:45 | DIS ---
DATE OF ADMISSION: 04/11/2019 DATE OF DISCHARGE: 04/12/2019 ADMITTING ATTENDING: Kaiden Covarrubias MD. DISCHARGE ATTENDING: Kaiden Covarrubias MD. CONSULTS: None. PROCEDURES: 1. Chest x-ray on 04/11/2019, demonstrating no evidence for acute cardiopulmonary process. 2. CT of abdomen and pelvis on 04/11/2019, demonstrating mild colonic diverticulosis, mildly distended bladder. 3. Brain CT on 04/11/2019, demonstrating no acute intracranial abnormalities. 4. Stress test on 04/12/2019, demonstrating calculated left ventricular ejection fraction 71%. Unremarkable myocardial perfusion scan. PRIMARY DIAGNOSIS: Atypical chest pain, suspected musculoskeletal versus gastroesophageal reflux disease. SECONDARY DIAGNOSES: 1. Heart failure with preserved ejection fraction. 2. Diverticulosis. 3. Hypertension. 4. Hyperlipidemia. DISCHARGE MEDICATIONS: 1. Crestor 20 mg p.o. at bedtime. 2. Losartan 25 mg p.o. daily. 3. Bentyl 10 mg p.o. q.i.d. p.r.n. Discontinued medications: Propranolol 20 mg p.o. daily. HISTORY OF PRESENT ILLNESS AND HOSPITAL COURSE: Patient is a 79-year-old female, who presented to the ED for symptoms of chest pain, headache that began last night prior to admission. She endorsed dizziness, palpitations, and fullness in her ears. She stated that her chest pain was left-sided, radiated down her arm and depending how much she was walking. Her headache was worse with lights located in the frontal lobe. She stated that she had a stress test approximately 5 years ago that was normal and had similar symptoms presentation approximately a year ago, was admitted to the hospital at that time but did not have any procedures. In the ED, she was given aspirin, morphine, Zofran, and Pepcid. Chest x-ray and other imaging per above was normal. An EKG was within normal limits. Initial troponin was negative. She was admitted to the floor for chest pain rule out. On the floor, she was monitored on telemetry without any acute events. Troponins were trended and negative x3. Patient had a HEART score of four and it had been five years since previous stress test. Thus, patient was planned for a nuclear medicine stress test on the day of discharge. This was performed and did not show any acute abnormalities as per above. It is determined that the patient's chest pain was likely musculoskeletal versus GERD as symptoms had improved with Protonix in the hospital. It is recommended the patient continue taking either a H2 shruti or proton pump inhibitor for the next 1 to 2 weeks and monitor symptoms. The patient was also noted to be bradycardic into the upper 50s. Thus, it is recommended the patient stop her propranolol and follow up with primary care physician. Patient is also noted to be hypertensive into the 160s 150s systolic blood pressure. Patient will likely need titration of home blood pressure medications at followup and consideration of spironolactone for heart failure with preserved ejection fraction. Regarding the patient's chronic medical conditions, home medications were continued. Lipid panel was within normal limits and adjustments were made as per above. At the time of discharge, the patient was currently symptom-free. Vital signs were stable. Findings were discussed with patient and family at bedside and discharge plan as well as appropriate followup was discussed. All questions were answered appropriately. Patient and family voiced agreement and understanding of the discharge plan and were eager for discharge. DISPOSITION: Stable. DISCHARGE INSTRUCTIONS: 1. Location: Home. 2. Diet: Heart healthy low-sodium. 3. Activity as tolerated. 4. Followup. She is to follow up with primary care physician, [facility] within 1 week of discharge. Job ID: [id number]
[2019-04-13] MEDS ORDERED: ADENOSINE 60 MG/20 ML VIAL ONE (09:51)
--- NOTE | 2019-04-14 05:41 | STRESS ---
Acquisition Time: 2019-04-12 10:54:20 Total Exercise Time: 00:04:00 Test Indications: CHEST PAIN Medications: Protocol: ADENOSINE Max HR: 078 BPM 55% of Pred: 141 BPM Max BP: 140/072 mmHG Max Work Load: 1.0 METS RESTING ECG: SINUS BRADYCARDIA AT 55 BPM SYMPTOMS: NONE NORMAL BP RESPONSE ECTOPY: NONE ECG STRESS: NO SIGNIFICANT CHANGES INTERPRETATION: NEGATIVE ECG/AWAIT NUCLEAR IMAGES FOR DEFINITIVE DIAGNOSIS Confirmed by BYRON MEJIA ELLEN ([id number]) on 04/14/2019 5:41:24 AM Referred By: MD Mary TORREZ Confirmed By:LESVIA MEJIA PA-C
== END 2019-04-12 16:17 | disposition home or self-care (01) ==
LOC: ERS 11:23 → 2SW 17:38
PROVIDERS: ADMIT Emergency Medicine; ATTEND Emergency Medicine
DX: R07.89 Other chest pain (principal); R51 Headache; R10.32 Left lower quadrant pain; I11.0 Hypertensive heart disease with heart failure; I50.30 Unspecified diastolic (congestive) heart failure; E78.5 Hyperlipidemia, unspecified; M19.90 Unspecified osteoarthritis, unspecified site; K57.30 Diverticulosis of large intestine without perforation or abscess without bleeding; R00.1 Bradycardia, unspecified; Z79.899 Other long term (current) drug therapy
CPT/HCPCS: 70450; 71045; 74177; 78452; 80053; 80061; 83690; 84484 ×2; 85025; 93005; 93017; 94760; 96374; 96375; 99285; A9500; G0378 ×3; 36415; J2270; J2405; S0028

== ENCOUNTER 2019-07-07 21:23 | Emergency (ER) | payer MEDICARE, MEDICAID ==
[2019-07-07 22:18] LABS: #Basophils 0.1 thou/uL (0.0-0.2); #Eosinphils 0.1 thou/uL (0.0-0.7); #Lymphocytes 2.4 thou/uL (1.20-3.40); #Monocytes 0.4 thou/uL (0.11-0.59); %Basophils 1.3 % (0.0-1.0); %Eosinophils 1.3 % (0.0-10.0); %Lymphocytes 48.6 % (21.0-51.0); %Monocytes 7.9 % (0.0-10.0); %Neutrophils 40.9 % (42.0-75.0); Hemoglobin 12.1 g/dL (12.0-16.0); Mean Corpuscular HGB CONC 33.5 g/dL (32.0-36.0); Mean Corpuscular Hemoglobin 30.4 pg (27.0-31.0); Mean Corpuscular Volume 90.7 fL (78.0-98.0); Mean Platelet Volume 8.4 fL (7.4-10.4); Platelet Count 162 thou/uL (130-400); RBC Distribution Width 11.5 % (11.5-14.5); White Blood Cell (WBC) Count 4.9 thou/uL (4.8-10.8)
[2019-07-07 22:43] LABS: ALT (SGPT) 12 U/L (8-55); AST (SGOT) 20 U/L (5-34); Albumin 4.1 g/dL (3.4-4.8); Alkaline Phosphatase 68 U/L (40-110); Anion Gap 12 mmol/L (10-20); BUN (Urea Nitrogen) 24 mg/dL (9.8-20.1); Bilirubin, Total 0.3 mg/dL (0.2-1.2); Calc. Creatinine Clearance 0 mL/min (70-130); Calcium 9.3 mg/dL (7.8-10.44); Carbon Dioxide 23 mmol/L (23-31); Chloride 107 mmol/L (98-107); Estimated GFR-MDRD 60; Globulin 2.6 g/dL (2.4-3.5); Glucose 91 mg/dL (83-110); Protein, Total 6.7 g/dL (6.0-8.3); Sodium 138 mmol/L (136-145)
--- NOTE | 2019-07-16 15:48 | EKG ---
Test Reason : Blood Pressure : / mmHG Vent. Rate : 054 BPM Atrial Rate : 054 BPM P-R Int : 156 ms QRS Dur : 094 ms QT Int : 412 ms P-R-T Axes : 019 -18 037 degrees QTc Int : 390 ms Sinus bradycardia Moderate voltage criteria for LVH, may be normal variant Borderline ECG Confirmed by MOMO MAX DO ([id number]), video editor JIMMY TODD ([id number]) on 07/16/2019 3:47:38 PM Referred By: Confirmed By:MOMO MAX DO
== END 2019-07-07 23:05 | disposition home or self-care (01) ==
LOC: ERS 21:23
DX: I10 Essential (primary) hypertension (principal); E78.5 Hyperlipidemia, unspecified; Z79.899 Other long term (current) drug therapy
CPT/HCPCS: 36415; 80053; 84484; 85025; 93005

== ENCOUNTER 2019-07-31 09:15 | Emergency (ER) | payer MEDICARE, OTHER | END 2019-07-31 10:11 | disposition short-term general hospital (02) | LOC: ERS 09:15 | DX: Z71.1 Person with feared health complaint in whom no diagnosis is made (principal); E78.5 Hyperlipidemia, unspecified; I10 Essential (primary) hypertension; Z79.899 Other long term (current) drug therapy | CPT/HCPCS: 99283 ==

== ENCOUNTER 2019-10-29 06:58 | Emergency (ER) | payer MEDICARE, OTHER ==
[2019-10-29 07:39] LABS: #Eosinphils 0.1 thou/uL (0.0-0.7); #Lymphocytes 1.6 thou/uL (1.20-3.40); #Monocytes 0.3 thou/uL (0.11-0.59); #Neutrophils 1.7 thou/uL (1.40-6.50); %Basophils 0.2 % (0.0-1.0); %Eosinophils 1.5 % (0.0-10.0); %Lymphocytes 44.8 % (21.0-51.0); %Monocytes 8.4 % (0.0-10.0); %Neutrophils 45.2 % (42.0-75.0); Hemoglobin 12.2 g/dL (12.0-16.0); Mean Corpuscular HGB CONC 34.1 g/dL (32.0-36.0); Mean Platelet Volume 7.9 fL (7.4-10.4); Platelet Count 158 thou/uL (130-400); RBC Distribution Width 11.5 % (11.5-14.5); Red Blood Cell (RBC) Count 4.06 mill/uL (4.20-5.40); White Blood Cell (WBC) Count 3.6 thou/uL (4.8-10.8)
--- NOTE | 2019-10-29 07:43 | RAD ---
Portable frontal chest radiograph: 10/29/2019 COMPARISON: 04/11/2019 HISTORY: Altered mental status FINDINGS: Lungs are clear. Heart and mediastinal contours appear within normal limits. IMPRESSION: No acute findings.
[2019-10-29 07:59] LABS: ALT (SGPT) 11 U/L (8-55); AST (SGOT) 21 U/L (5-34); Albumin 4.1 g/dL (3.4-4.8); Alkaline Phosphatase 73 U/L (40-110); Anion Gap 11 mmol/L (10-20); BUN (Urea Nitrogen) 22 mg/dL (9.8-20.1); Bilirubin, Total 0.3 mg/dL (0.2-1.2); Calc. Creatinine Clearance 0 mL/min (70-130); Calcium 8.7 mg/dL (7.8-10.44); Carbon Dioxide 26 mmol/L (23-31); Chloride 107 mmol/L (98-107); Estimated GFR-MDRD 69; Globulin 2.4 g/dL (2.4-3.5); Glucose 93 mg/dL (83-110); Potassium 3.8 mmol/L (3.5-5.1); Protein, Total 6.5 g/dL (6.0-8.3); Sodium 140 mmol/L (136-145)
[2019-10-29 08:01] LABS: Bilirubin Negative (Negative); Blood, Urine Negative (Negative); Clarity Clear (Clear); Glucose, Urine (Dipstick) Normal (Negative); Ketone, Urine Negative (Negative); Leukocyte Negative Leu/uL (Negative); Nitrite Negative (Negative); Protein, Urine (Dipstick) Negative (Neg-Trace); Urobilinogen Normal mg/dL (Less than 2); pH, Urine 7.5 (5.0-9.0)
[2019-10-29] MEDS ORDERED: Ondansetron PF 4 MG/2 ML Vial ONE (08:17)
--- NOTE | 2019-10-29 09:32 | CT ---
EXAM: CT ANGIOGRAM OF THE NECK INDICATION: Left upper neck pain with left upper extremity weakness. COMPARISON: 07/24/2014 TECHNIQUE: CT angiogram of the neck are performed in the axial plane. Three-dimensional reformatted i mages are submitted for interpretation. FINDINGS: CTA OF THE HEAD WITH AND WITHOUT CONTRAST: POSTCONTRAST CT OF BRAIN: Pathologic enhancement: No pathologic enhancement the brain. Postcontrast soft tissue neck CT: Aerodigestive tract:Aerodigestive tract is patent. No mucosal abnormality. Sinuses: Mild mucosal thickening. Orbits: Bilateral ocular lenses are appropriately located. Both globes are intact. Retrobulbar fat is preserved. Symmetric attenuation the optic nerves and ocular rectus muscles. Salivary glands:Symmetric attenuation of the parotid and submandibular glands. Fatty attenuation in b ilateral parotid glands Thyroid gland: Appropriate attenuation Lymph nodes: No evidence of lymphadenopathy by size criteria. Paraspinal muscles: Symmetric attenuation of the sternocleidomastoid muscles. Appropriate attenuation of the paraspinal muscles. Cervical spine:Vertebral body height is maintained. No fracture. No significant central canal stenosi s or significant neural foraminal narrowing. Limited evaluation by technique. Upper mediastinum and lung apices: Patchy groundglass opacities, nonspecific CTA OF THE NECK WITH CONTRAST: Aorta: Appropriate enhancement and luminal diameter. Right carotid artery: Appropriate enhancement and luminal diameter of the origin of the right carotid artery, common carotid artery, carotid bifurcation and internal carotid artery. Minimal atherosclerosis in the right carotid bifurcation. No significant stenosis based upon NASCET criteria Left carotid: Appropriate enhancement and luminal diameter of the left carotid origin, common carotid , carotid bifurcation and internal carotid artery. Minimal atherosclerosis in the left carotid bifurcation. No significant stenosis based upon NASCET criteria. Subclavian arteries:Patent and symmetric Vertebral arteries:Patent throughout their course in the neck. Vertebral arteries are nearly codomina nt. IMPRESSION: 1. No hemodynamically significant stenosis, occlusion or aneurysmal formation. Transcribed Date/Time: 10/29/2019 9:52 AM
--- NOTE | 2019-10-29 10:05 | CT ---
BRAIN CT WITHOUT IV CONTRAST: HISTORY: Pain, dizziness, nausea, vomiting. COMPARISON: 04/11/2019. FINDINGS: No focal mass or midline shift. No intra- or extraaxial hemorrhage. Sinuses and mastoids show no ac [place] process. IMPRESSION: No significant acute intracranial process. No mass or bleed. POS: [facility]
[2019-10-29] MEDS ORDERED: Metoclopramide HCl 10 MG/2 ML VIAL ONE (11:06)
== END 2019-10-29 11:58 | disposition home or self-care (01) ==
LOC: ERS 06:58
DX: G43.909 Migraine, unspecified, not intractable, without status migrainosus (principal); R42 Dizziness and giddiness; R11.2 Nausea with vomiting, unspecified; R29.700 NIHSS score 0; I10 Essential (primary) hypertension; E78.5 Hyperlipidemia, unspecified
CPT/HCPCS: 70450; 70498; 71045; 80053; 81003; 84484; 85025; 93005; 96374; 96375; J2405; J2765

== ENCOUNTER 2020-02-19 22:22 | Emergency (ER) | payer MEDICARE, MEDICAID ==
[2020-02-20] MEDS ORDERED: Ondansetron PF 4 MG/2 ML Vial ONE (00:06)
[2020-02-20 00:16] LABS: #Lymphocytes 1.4 thou/uL (1.20-3.40); #Monocytes 0.3 thou/uL (0.11-0.59); #Neutrophils 6.5 thou/uL (1.40-6.50); %Basophils 0.4 % (0.0-1.0); %Eosinophils 0.4 % (0.0-10.0); %Lymphocytes 16.6 % (21.0-51.0); %Neutrophils 78.6 % (42.0-75.0); Hemoglobin 12.7 g/dL (12.0-16.0); Mean Corpuscular HGB CONC 34.5 g/dL (32.0-36.0); Mean Corpuscular Hemoglobin 29.8 pg (27.0-31.0); Mean Corpuscular Volume 86.5 fL (78.0-98.0); Mean Platelet Volume 7.6 fL (7.4-10.4); Platelet Count 194 thou/uL (130-400); RBC Distribution Width 11.4 % (11.5-14.5); Red Blood Cell (RBC) Count 4.25 mill/uL (4.20-5.40); White Blood Cell (WBC) Count 8.3 thou/uL (4.8-10.8)
[2020-02-20 00:32] LABS: ALT (SGPT) 12 U/L (8-55); AST (SGOT) 21 U/L (5-34); Albumin 4.6 g/dL (3.4-4.8); Alkaline Phosphatase 78 U/L (40-110); Anion Gap 14 mmol/L (10-20); BUN (Urea Nitrogen) 20 mg/dL (9.8-20.1); Bilirubin, Total 0.3 mg/dL (0.2-1.2); Calc. Creatinine Clearance 0 mL/min (70-130); Calcium 9.1 mg/dL (7.8-10.44); Carbon Dioxide 27 mmol/L (23-31); Chloride 105 mmol/L (98-107); Globulin 2.9 g/dL (2.4-3.5); Glucose 141 mg/dL (83-110); Lipase 38 U/L (8-78); Potassium 4.2 mmol/L (3.5-5.1); Protein, Total 7.5 g/dL (6.0-8.3); Sodium 142 mmol/L (136-145)
[2020-02-20] MEDS ORDERED: Meclizine HCl 25 MG TAB ONE (01:42)
== END 2020-02-20 01:45 | disposition home or self-care (01) ==
LOC: ERS 22:22
DX: R42 Dizziness and giddiness (principal); E78.5 Hyperlipidemia, unspecified; I10 Essential (primary) hypertension
CPT/HCPCS: 36415; 80053; 83690; 84484; 85025; 93005; 96374; J2405

== ENCOUNTER 2020-06-08 12:58 | Emergency (ER) | payer MEDICARE, MEDICAID ==
[2020-06-08 14:02] LABS: #Lymphocytes 2.1 thou/uL (1.20-3.40); #Monocytes 0.3 thou/uL (0.11-0.59); #Neutrophils 2.2 thou/uL (1.40-6.50); %Basophils 0.3 % (0.0-1.0); %Lymphocytes 45.5 % (21.0-51.0); %Neutrophils 46.2 % (42.0-75.0); Hemoglobin 12.4 g/dL (12.0-16.0); Mean Corpuscular HGB CONC 34.4 g/dL (32.0-36.0); Mean Corpuscular Hemoglobin 30.2 pg (27.0-31.0); Mean Corpuscular Volume 87.9 fL (78.0-98.0); Mean Platelet Volume 7.5 fL (7.4-10.4); Platelet Count 206 thou/uL (130-400); RBC Distribution Width 11.3 % (11.5-14.5); Red Blood Cell (RBC) Count 4.12 mill/uL (4.20-5.40); White Blood Cell (WBC) Count 4.7 thou/uL (4.8-10.8)
[2020-06-08 14:37] LABS: ALT (SGPT) 10 U/L (8-55); AST (SGOT) 21 U/L (5-34); Albumin 4.1 g/dL (3.4-4.8); Alkaline Phosphatase 67 U/L (40-110); Anion Gap 11 mmol/L (10-20); BUN (Urea Nitrogen) 17 mg/dL (9.8-20.1); Bilirubin, Total 0.3 mg/dL (0.2-1.2); Calc. Creatinine Clearance 0 mL/min (70-130); Carbon Dioxide 26 mmol/L (23-31); Chloride 107 mmol/L (98-107); Globulin 2.9 g/dL (2.4-3.5); Glucose 95 mg/dL (83-110); Potassium 4.1 mmol/L (3.5-5.1); Sodium 140 mmol/L (136-145)
[2020-06-08 17:18] LABS: Bilirubin Negative (Negative); Blood, Urine Negative (Negative); Clarity Clear (Clear); Glucose, Urine (Dipstick) Normal (Negative); Ketone, Urine Negative (Negative); Leukocyte Negative Leu/uL (Negative); Nitrite Negative (Negative); Protein, Urine (Dipstick) Negative (Neg-Trace); Specific Gravity, Urine 1.007 (1.002-1.036); Urobilinogen Normal mg/dL (Less than 2)
[2020-06-08] MEDS ORDERED: Meclizine HCl 25 MG TAB ONE (17:53)
[2020-06-08] MEDS ORDERED: Lorazepam 2 MG/ML VIAL ONE (17:53)
== END 2020-06-08 19:30 | disposition home or self-care (01) ==
LOC: ERS 12:58
DX: R42 Dizziness and giddiness (principal); Z79.899 Other long term (current) drug therapy; E78.5 Hyperlipidemia, unspecified; I10 Essential (primary) hypertension
CPT/HCPCS: 36415; 70450; 71045; 80053; 81003; 84484; 85025; 93005; 94760; 96374; J2060

== ENCOUNTER 2020-06-27 18:03 | Emergency (ER) | payer MEDICARE, MEDICAID ==
[2020-06-27 18:43] LABS: #Basophils 0.1 thou/uL (0.0-0.2); #Eosinphils 0.1 thou/uL (0.0-0.7); #Lymphocytes 2.5 thou/uL (1.20-3.40); #Monocytes 0.5 thou/uL (0.11-0.59); #Neutrophils 2.4 thou/uL (1.40-6.50); %Basophils 1.3 % (0.0-1.0); %Eosinophils 1.5 % (0.0-10.0); %Lymphocytes 45.3 % (21.0-51.0); %Monocytes 8.2 % (0.0-10.0); %Neutrophils 43.7 % (42.0-75.0); Hemoglobin 11.5 g/dL (12.0-16.0); Mean Corpuscular Hemoglobin 29.6 pg (27.0-31.0); Mean Corpuscular Volume 87.2 fL (78.0-98.0); Mean Platelet Volume 7.1 fL (7.4-10.4); Platelet Count 181 thou/uL (130-400); RBC Distribution Width 11.1 % (11.5-14.5); Red Blood Cell (RBC) Count 3.87 mill/uL (4.20-5.40); White Blood Cell (WBC) Count 5.5 thou/uL (4.8-10.8)
[2020-06-27 18:48] LABS: Bilirubin Negative (Negative); Blood, Urine Negative (Negative); Clarity Clear (Clear); Glucose, Urine (Dipstick) Normal (Negative); Ketone, Urine Negative (Negative); Leukocyte Negative Leu/uL (Negative); Nitrite Negative (Negative); Protein, Urine (Dipstick) Negative (Neg-Trace); Specific Gravity, Urine 1.015 (1.002-1.036); Urobilinogen Normal mg/dL (Less than 2)
[2020-06-27 19:14] LABS: ALT (SGPT) 11 U/L (8-55); AST (SGOT) 22 U/L (5-34); Albumin 4.1 g/dL (3.4-4.8); Alkaline Phosphatase 74 U/L (40-110); Anion Gap 12 mmol/L (10-20); BUN (Urea Nitrogen) 24 mg/dL (9.8-20.1); Bilirubin, Total 0.2 mg/dL (0.2-1.2); Calc. Creatinine Clearance 0 mL/min (70-130); Calcium 8.7 mg/dL (7.8-10.44); Carbon Dioxide 25 mmol/L (23-31); Chloride 106 mmol/L (98-107); Globulin 2.4 g/dL (2.4-3.5); Glucose 87 mg/dL (83-110); Lipase 47 U/L (8-78); Potassium 4.9 mmol/L (3.5-5.1); Protein, Total 6.5 g/dL (5.8-8.1); Sodium 138 mmol/L (136-145)
[2020-06-27] MEDS ORDERED: Meclizine HCl 25 MG TAB ONE (21:20)
== END 2020-06-27 22:10 | disposition home or self-care (01) ==
LOC: ERS 18:03
DX: R42 Dizziness and giddiness (principal); E78.5 Hyperlipidemia, unspecified; I10 Essential (primary) hypertension; Z79.899 Other long term (current) drug therapy
CPT/HCPCS: 36415; 71045; 80053; 81003; 83690; 84484; 85025; 93005; 94760

== ENCOUNTER 2020-10-09 10:21 | Emergency (ER) | payer MEDICARE, MEDICAID ==
[2020-10-09] MEDS ORDERED: Iopamidol-370 76% 500 ML 1 ML ONE (10:45)
[2020-10-09 10:54] LABS: #Eosinphils 0.1 thou/uL (0.0-0.7); #Lymphocytes 1.8 thou/uL (1.20-3.40); #Monocytes 0.5 thou/uL (0.11-0.59); #Neutrophils 2.8 thou/uL (1.40-6.50); %Basophils 0.5 % (0.0-1.0); %Eosinophils 1.8 % (0.0-10.0); %Monocytes 8.9 % (0.0-10.0); %Neutrophils 53.8 % (42.0-75.0); Hemoglobin 12.6 g/dL (12.0-16.0); Mean Corpuscular HGB CONC 34.6 g/dL (32.0-36.0); Mean Corpuscular Hemoglobin 30.4 pg (27.0-31.0); Mean Corpuscular Volume 87.9 fL (78.0-98.0); Mean Platelet Volume 7.4 fL (7.4-10.4); Platelet Count 224 thou/uL (130-400); RBC Distribution Width 11.4 % (11.5-14.5); Red Blood Cell (RBC) Count 4.15 mill/uL (4.20-5.40); White Blood Cell (WBC) Count 5.1 thou/uL (4.8-10.8)
[2020-10-09 11:16] LABS: ALT (SGPT) 16 U/L (8-55); AST (SGOT) 27 U/L (5-34); Albumin 4.1 g/dL (3.4-4.8); Alkaline Phosphatase 55 U/L (40-110); Anion Gap 11 mmol/L (10-20); BUN (Urea Nitrogen) 15 mg/dL (9.8-20.1); Bilirubin, Total 0.4 mg/dL (0.2-1.2); Calc. Creatinine Clearance 0 mL/min (70-130); Calcium 8.7 mg/dL (7.8-10.44); Carbon Dioxide 24 mmol/L (23-31); Chloride 108 mmol/L (98-107); Globulin 2.8 g/dL (2.4-3.5); Glucose 92 mg/dL (83-110); Potassium 4.4 mmol/L (3.5-5.1); Protein, Total 6.9 g/dL (5.8-8.1); Sodium 139 mmol/L (136-145)
[2020-10-09] MEDS ORDERED: Meclizine HCl 25 MG TAB ONE (11:50)
[2020-10-09] MEDS ORDERED: Diazepam 10 MG/2 ML SYRINGE ONE (14:07)
[2020-10-09] MEDS ORDERED: Ketorolac Tromethamine 30 MG/ML VIAL ONE (15:46)
== END 2020-10-09 17:03 | disposition home or self-care (01) ==
LOC: ERS 10:21
DX: H81.13 Benign paroxysmal vertigo, bilateral (principal); M79.602 Pain in left arm; E78.5 Hyperlipidemia, unspecified; I10 Essential (primary) hypertension
CPT/HCPCS: 36415; 70450; 70496; 71045; 80053; 84484; 85025; 93005; 96374; 96375; J1885; J3360

== ENCOUNTER 2021-01-16 14:10 | Outpatient (CLI) | payer MEDICARE, MEDICAID | END 2021-01-16 14:11 | disposition home or self-care (01) | LOC: BICMRI 14:10 | PROVIDERS: ATTEND Student in an Organized Health Care Education/Training Program | DX: S83.8X1D Sprain of other specified parts of right knee, subsequent encounter (principal); S83.206A Unspecified tear of unspecified meniscus, current injury, right knee, initial encounter ==

== ENCOUNTER 2021-04-27 11:03 | Outpatient (CLI) | payer MEDICARE, MEDICAID | END 2021-04-27 11:04 | disposition home or self-care (01) | LOC: MRI 11:03 | PROVIDERS: ATTEND Neurological Surgery | DX: M47.26 Other spondylosis with radiculopathy, lumbar region (principal) | CPT/HCPCS: 72148 ==

== ENCOUNTER 2021-09-14 | Emergency (ER) | payer MEDICARE, MEDICAID ==
[2021-09-14 00:32] LABS: #Eosinphils 0.1 thou/uL (0.0-0.7); #Lymphocytes 1.8 thou/uL (1.20-3.40); #Monocytes 0.6 thou/uL (0.11-0.59); #Neutrophils 3.2 thou/uL (1.40-6.50); %Basophils 0.2 % (0.0-1.0); %Eosinophils 1.2 % (0.0-10.0); %Lymphocytes 31.4 % (21.0-51.0); %Monocytes 11.2 % (0.0-10.0); %Neutrophils 56.1 % (42.0-75.0); Mean Corpuscular Hemoglobin 30.3 pg (27.0-31.0); Mean Corpuscular Volume 89.3 fL (78.0-98.0); Mean Platelet Volume 7.5 fL (7.4-10.4); Platelet Count 181 thou/uL (130-400); RBC Distribution Width 11.7 % (11.5-14.5); Red Blood Cell (RBC) Count 3.97 mill/uL (4.20-5.40); White Blood Cell (WBC) Count 5.7 thou/uL (4.8-10.8)
[2021-09-14] MEDS ORDERED: Ondansetron PF 4 MG/2 ML Vial ONE (00:46)
[2021-09-14 01:14] LABS: ALT (SGPT) 32 U/L (8-55); AST (SGOT) 50 U/L (5-34); Albumin 3.9 g/dL (3.4-4.8); Alkaline Phosphatase 61 U/L (40-110); Anion Gap 12 mmol/L (10-20); BUN (Urea Nitrogen) 11 mg/dL (9.8-20.1); Bilirubin, Total 0.3 mg/dL (0.2-1.2); Calc. Creatinine Clearance 0 mL/min (70-130); Calcium 8.7 mg/dL (7.8-10.44); Carbon Dioxide 26 mmol/L (23-31); Chloride 107 mmol/L (98-107); Estimated GFR 74; Globulin 2.7 g/dL (2.4-3.5); Glucose 93 mg/dL (83-110); Lipase 108 U/L (8-78); Protein, Total 6.6 g/dL (5.8-8.1); Sodium 141 mmol/L (136-145)
[2021-09-14 01:36] LABS: Bilirubin Negative (Negative); Blood, Urine Negative (Negative); Clarity Clear (Clear); Glucose, Urine (Dipstick) Normal (Negative); Ketone, Urine Negative (Negative); Leukocyte Negative Leu/uL (Negative); Nitrite Negative (Negative); Protein, Urine (Dipstick) Negative (Neg-Trace); Specific Gravity, Urine 1.006 (1.002-1.036); Urobilinogen Normal mg/dL (Less than 2)
[2021-09-14] MEDS ORDERED: Iopamidol-370 76% 500 ML 1 ML ONE (13:26)
== END 2021-09-14 02:39 | disposition home or self-care (01) ==
LOC: ERS
DX: R19.7 Diarrhea, unspecified (principal); R11.2 Nausea with vomiting, unspecified; I10 Essential (primary) hypertension; E78.5 Hyperlipidemia, unspecified
CPT/HCPCS: 74177; 80053; 81003; 83690; 84484; 85025; 93005; 96361; 96374; J2405; Q9967

== ENCOUNTER 2022-10-16 13:01 | Observation (INO) | payer OTHER, MEDICAID ==
[~2022-10-16 13:01] MED LIST changes: -ISOVUE-370 76%-LOCM 1 ML ONE; +Iopamidol-370 76% 500 ML MDV (1 ML CHARGE) ONE
[2022-10-16 14:23] LABS: #Monocytes 0.4 thou/uL (0.11-0.59); #Neutrophils 2.9 thou/uL (1.40-6.50); %Basophils 0.2 % (0.0-1.0); %Eosinophils 0.6 % (0.0-10.0); %Lymphocytes 36.3 % (21.0-51.0); %Neutrophils 54.7 % (42.0-75.0); Hematocrit 35.4 % (36.0-47.0); Hemoglobin 12.1 g/dL (12.0-16.0); Mean Corpuscular HGB CONC 34.2 g/dL (32.0-36.0); Mean Corpuscular Hemoglobin 29.2 pg (27.0-31.0); Mean Corpuscular Volume 85.3 fl (78.0-98.0); Mean Platelet Volume 9.9 fL (7.4-10.4); Platelet Count 198 10x3/uL (130-400); RBC Distribution Width 13.1 % (11.5-14.5); Red Blood Cell (RBC) Count 4.15 mill/uL (4.20-5.40); White Blood Cell (WBC) Count 5.4 10x3/uL (4.8-10.8)
[2022-10-16 14:49] LABS: ALT (SGPT) 21 U/L (8-55); AST (SGOT) 29 U/L (5-34); Alkaline Phosphatase 67 U/L (40-110); Anion Gap 12 mmol/L (10-20); BUN (Urea Nitrogen) 15 mg/dL (9.8-20.1); Bilirubin, Total 0.4 mg/dL (0.2-1.2); Calc. Creatinine Clearance 0 mL/min (70-130); Calcium 9.5 mg/dL (7.8-10.44); Carbon Dioxide 26 mmol/L (23-31); Chloride 106 mmol/L (98-107); Estimated GFR 63; Globulin 2.9 g/dL (2.4-3.5); Glucose 113 mg/dL (83-110); Protein, Total 6.9 g/dL (5.8-8.1); Sodium 140 mmol/L (136-145)
[2022-10-16 14:52] LABS: Troponin I Less than 0.010 ng/mL (< 0.028)
[2022-10-16 16:06] LABS: Bacteria/HPF None Seen HPF (None Seen); Bilirubin Negative (Negative); Blood, Urine Negative (Negative); CAUTI Indications for Culture Dysuria,urgency,freq; Clarity Clear (Clear); Glucose, Urine (Dipstick) Normal (Negative); Ketone, Urine Negative (Negative); Leukocyte Negative Leu/uL (Negative); Nitrite Negative (Negative); Protein, Urine (Dipstick) Negative (Neg-Trace); RBC/HPF 0-3 HPF (0-3); Specific Gravity, Urine 1.014 (1.002-1.036); Squamous Epithelial 0-3 HPF (0-3); Urobilinogen Normal mg/dL (Less than 2); WBC/HPF 0-3 HPF (0-3); pH, Urine 7.5 (5.0-9.0)
[2022-10-16 16:09] LABS: Urine Culture Reflex No No
[2022-10-16] MEDS ORDERED: Ondansetron PF 4 MG/2 ML Vial IVP PRN (19:04)
[2022-10-16] MEDS ORDERED: Ondansetron ODT 4 MG TAB PO PRN (19:04)
[2022-10-16] MEDS ORDERED: hydrALAZINE 20 MG/ML VIAL SLOW IVP PRN (19:04)
[2022-10-16] MEDS ORDERED: Aspirin 81 mg Enteric Coated Tablet PO SCH (19:15)
[2022-10-16 20:46] VITALS: BMI 26.8
[2022-10-16] MEDS: Acetaminophen 325 MG TAB PO PRN (20:49)
[2022-10-16] MEDS ORDERED: Atorvastatin Calcium 40 MG TAB PO SCH (21:00)
[2022-10-17] MEDS: Acetaminophen 325 MG TAB PO PRN ×2 (05:33→08:32)
[2022-10-17 05:46] LABS: #Eosinphils 0.1 thou/uL (0.0-0.7); #Monocytes 0.4 thou/uL (0.11-0.59); #Neutrophils 2.7 thou/uL (1.40-6.50); %Basophils 0.4 % (0.0-1.0); %Eosinophils 1.7 % (0.0-10.0); %Lymphocytes 37.7 % (21.0-51.0); %Monocytes 8.3 % (0.0-10.0); %Neutrophils 51.7 % (42.0-75.0); Hematocrit 33.7 % (36.0-47.0); Hemoglobin 11.4 g/dL (12.0-16.0); Mean Corpuscular HGB CONC 33.8 g/dL (32.0-36.0); Mean Corpuscular Hemoglobin 29.1 pg (27.0-31.0); Mean Platelet Volume 9.9 fL (7.4-10.4); Platelet Count 165 10x3/uL (130-400); RBC Distribution Width 13.1 % (11.5-14.5); Red Blood Cell (RBC) Count 3.92 mill/uL (4.20-5.40); White Blood Cell (WBC) Count 5.3 10x3/uL (4.8-10.8)
[2022-10-17 06:29] LABS: Hemoglobin A1c 5.3 % (4.0-6.0)
[2022-10-17 06:43] LABS: Anion Gap 11 mmol/L (10-20); BUN (Urea Nitrogen) 16 mg/dL (9.8-20.1); Calc. Creatinine Clearance 50 mL/min (70-130); Calcium 8.9 mg/dL (7.8-10.44); Carbon Dioxide 24 mmol/L (23-31); Cardiac Risk 3.5 (Less than 4.5); Chloride 108 mmol/L (98-107); Cholesterol 113 mg/dl (< 200 Desired); Estimated GFR 74; Glucose 90 mg/dL (83-110); HDL Cholesterol 32 mg/dL (>60 Neg Risk); LDL Cholesterol, Calculated 63 mg/dL; Magnesium 1.8 mg/dL (1.6-2.6); Phosphorus 3.9 mg/dL (2.3-4.7); Potassium 3.9 mmol/L (3.5-5.1); Sodium 139 mmol/L (136-145); Triglycerides 92 mg/dL (Less than 150)
[2022-10-17] MEDS ORDERED: Aspirin 81 mg Enteric Coated Tablet PO SCH (09:00)
[2022-10-17] MEDS ORDERED: Losartan 25 MG TAB PO SCH (09:00)
[2022-10-17] MEDS ORDERED: Meclizine HCl 25 MG TAB PO PRN (09:00)
[2022-10-17 11:31] VITALS: TEMP 97.3
[2022-10-17 11:37] VITALS: BP 148/69
[2022-10-17] MEDS ORDERED: Dexamethasone 4 MG TAB PO SCH (12:00)
[2022-10-17] MEDS ORDERED: Dicyclomine 20 MG TAB PO SCH (14:00)
[2022-10-17] MEDS ORDERED: Rosuvastatin 20 MG TAB PO SCH (21:00)
[2022-10-17] MEDS ORDERED: traZODone HCl 50 MG TAB PO SCH (21:00)
[2022-10-19] MEDS ORDERED: Dexamethasone 1 MG TAB PO SCH (12:00)
[2022-10-21] MEDS ORDERED: Dexamethasone 1 MG TAB PO SCH (12:00)
[2022-10-23] MEDS ORDERED: Dexamethasone 1 MG TAB PO SCH (12:00)
== END 2022-10-17 14:47 | disposition home or self-care (01) ==
LOC: ERS 13:01 → 2SW 17:22
PROVIDERS: ADMIT Hospitalist; ATTEND Emergency Medicine
DX: R53.1 Weakness (principal); M48.061 Spinal stenosis, lumbar region without neurogenic claudication; E78.5 Hyperlipidemia, unspecified; D64.9 Anemia, unspecified; I12.9 Hypertensive chronic kidney disease with stage 1 through stage 4 chronic kidney disease, or unspecified chronic kidney disease; N18.2 Chronic kidney disease, stage 2 (mild); Z90.710 Acquired absence of both cervix and uterus; Z79.899 Other long term (current) drug therapy; Z79.82 Long term (current) use of aspirin
CPT/HCPCS: 70450; 70496; 70498; 70551; 71045; 72148; 80048; 80053; 80061; 81001; 83036; 83735; 84100; 84443; 84484; 85025 ×2; 93005; 96360; 97116; 99285; G0378 ×3; 36415; J8540; Q9967

== ENCOUNTER 2022-11-10 15:07 | Emergency (ER) | payer OTHER, MEDICAID ==
[2022-11-10 15:28] LABS: #Monocytes 0.4 thou/uL (0.11-0.59); #Neutrophils 1.4 thou/uL (1.40-6.50); %Basophils 0.2 % (0.0-1.0); %Eosinophils 0.2 % (0.0-10.0); %Lymphocytes 58.2 % (21.0-51.0); %Monocytes 8.2 % (0.0-10.0); Hematocrit 36.6 % (36.0-47.0); Hemoglobin 12.4 g/dL (12.0-16.0); Mean Corpuscular HGB CONC 33.9 g/dL (32.0-36.0); Mean Corpuscular Hemoglobin 29.2 pg (27.0-31.0); Mean Corpuscular Volume 86.3 fl (78.0-98.0); Mean Platelet Volume 10.2 fL (7.4-10.4); Platelet Count 197 10x3/uL (130-400); Red Blood Cell (RBC) Count 4.24 mill/uL (4.20-5.40); White Blood Cell (WBC) Count 4.3 10x3/uL (4.8-10.8)
[2022-11-10] MEDS ORDERED: Acetaminophen 500 MG TAB ONE (15:41)
[2022-11-10] MEDS ORDERED: Ondansetron PF 4 MG/2 ML Vial ONE (15:41)
[2022-11-10] MEDS ORDERED: Famotidine/PF 20 mg/2ml Vial ONE (15:41)
[2022-11-10 16:00] LABS: ALT (SGPT) 23 U/L (8-55); AST (SGOT) 41 U/L (5-34); Albumin 4.1 g/dL (3.4-4.8); Alkaline Phosphatase 65 U/L (40-110); Anion Gap 14 mmol/L (10-20); BUN (Urea Nitrogen) 14 mg/dL (9.8-20.1); Bilirubin, Total 0.2 mg/dL (0.2-1.2); Calc. Creatinine Clearance 0 mL/min (70-130); Carbon Dioxide 21 mmol/L (23-31); Chloride 106 mmol/L (98-107); Estimated GFR 74; Globulin 3.7 g/dL (2.4-3.5); Glucose 84 mg/dL (83-110); Lipase 47 U/L (8-78); Potassium 5.6 mmol/L (3.5-5.1); Protein, Total 7.8 g/dL (5.8-8.1); Sodium 135 mmol/L (136-145); Troponin I Less than 0.010 ng/mL (< 0.028)
[2022-11-10 17:08] LABS: Bacteria/HPF None Seen HPF (None Seen); Bilirubin Negative (Negative); Blood, Urine Negative (Negative); CAUTI Indications for Culture Pelvic or flank pain; Clarity Clear (Clear); Glucose, Urine (Dipstick) Normal (Negative); Ketone, Urine Negative (Negative); Leukocyte Negative Leu/uL (Negative); Nitrite Negative (Negative); Protein, Urine (Dipstick) Negative (Neg-Trace); RBC/HPF 0-3 HPF (0-3); Specific Gravity, Urine 1.005 (1.002-1.036); Squamous Epithelial None Seen HPF (0-3); Urobilinogen Normal mg/dL (Less than 2); WBC/HPF 0-3 HPF (0-3); pH, Urine 6.5 (5.0-9.0)
[2022-11-10 17:13] LABS: Urine Culture Reflex No No
== END 2022-11-10 19:04 | disposition home or self-care (01) ==
LOC: ERS 15:07
DX: R51.9 Headache, unspecified (principal); E86.0 Dehydration; I10 Essential (primary) hypertension; R63.0 Anorexia; E78.5 Hyperlipidemia, unspecified; Z79.899 Other long term (current) drug therapy
CPT/HCPCS: 74177; 80053; 81001; 83690; 84484; 85025; 93005; 96361; 96374; 96375; J2405; Q9967; S0028

== ENCOUNTER 2022-12-13 08:52 | Outpatient (CLI) | payer OTHER, MEDICAID | END 2022-12-13 08:53 | disposition home or self-care (01) | LOC: BICMAMMO 08:52 | PROVIDERS: ATTEND Family Medicine | DX: Z12.31 Encounter for screening mammogram for malignant neoplasm of breast (principal) | CPT/HCPCS: 77063; 77067 ==

== ENCOUNTER 2023-02-01 21:18 | Emergency (ER) | payer OTHER ==
[2023-02-01 23:26] LABS: #Eosinphils 0.1 thou/uL (0.0-0.7); #Monocytes 0.5 thou/uL (0.11-0.59); #Neutrophils 2.9 thou/uL (1.40-6.50); %Basophils 0.3 % (0.0-1.0); %Eosinophils 1.2 % (0.0-10.0); %Lymphocytes 39.2 % (21.0-51.0); %Monocytes 9.2 % (0.0-10.0); %Neutrophils 49.9 % (42.0-75.0); Hematocrit 36.9 % (36.0-47.0); Hemoglobin 12.5 g/dL (12.0-16.0); Mean Corpuscular HGB CONC 33.9 g/dL (32.0-36.0); Mean Corpuscular Hemoglobin 29.3 pg (27.0-31.0); Mean Corpuscular Volume 86.6 fl (78.0-98.0); Mean Platelet Volume 9.6 fL (7.4-10.4); Platelet Count 185 10x3/uL (130-400); Red Blood Cell (RBC) Count 4.26 mill/uL (4.20-5.40); White Blood Cell (WBC) Count 5.8 10x3/uL (4.8-10.8)
[2023-02-01 23:52] LABS: Troponin I Less than 0.010 ng/mL (< 0.028)
[2023-02-01 23:55] LABS: ALT (SGPT) 25 U/L (8-55); AST (SGOT) 28 U/L (5-34); Alkaline Phosphatase 74 U/L (40-110); Anion Gap 11 mmol/L (10-20); BUN (Urea Nitrogen) 14 mg/dL (9.8-20.1); Bilirubin, Total 0.3 mg/dL (0.2-1.2); Calc. Creatinine Clearance 0 mL/min (70-130); Calcium 9.1 mg/dL (7.8-10.44); Carbon Dioxide 26 mmol/L (23-31); Chloride 107 mmol/L (98-107); Estimated GFR 85; Globulin 2.4 g/dL (2.4-3.5); Glucose 93 mg/dL (83-110); Lipase 44 U/L (8-78); Potassium 4.1 mmol/L (3.5-5.1); Protein, Total 6.4 g/dL (5.8-8.1); Sodium 140 mmol/L (136-145)
[2023-02-02] MEDS ORDERED: Lidocaine 2% Viscous Solution 10 ML, Aluminum & Magnesium Hydroxide 30 ML SSW SCH (01:00)
[2023-02-02] MEDS ORDERED: Famotidine/PF 20 mg/2ml Vial ONE (01:14)
[2023-02-02] MEDS ORDERED: Dicyclomine 20 MG/2 ML VIAL ONE (01:14)
[2023-02-02] MEDS ORDERED: Ondansetron PF 4 MG/2 ML Vial ONE (01:14)
[2023-02-02 02:39] LABS: Bacteria/HPF 1+ HPF (None Seen); Bilirubin Negative (Negative); Blood, Urine Negative (Negative); CAUTI Indications for Culture Dysuria,urgency,freq; Clarity Clear (Clear); Glucose, Urine (Dipstick) Normal (Negative); Ketone, Urine Negative (Negative); Leukocyte Negative Leu/uL (Negative); Nitrite Negative (Negative); Protein, Urine (Dipstick) Negative (Neg-Trace); RBC/HPF 0-3 HPF (0-3); Specific Gravity, Urine 1.005 (1.002-1.036); Squamous Epithelial None Seen HPF (0-3); Urobilinogen Normal mg/dL (Less than 2); WBC/HPF 0-3 HPF (0-3)
[2023-02-02 02:40] LABS: Urine Culture Reflex No No
== END 2023-02-02 04:40 | disposition home or self-care (01) ==
LOC: ERS 21:18
DX: E86.0 Dehydration (principal); I10 Essential (primary) hypertension; R11.2 Nausea with vomiting, unspecified
CPT/HCPCS: 36415; 80053; 81001; 83690; 84484; 85025; 93005; 96361; 96372; 96374; 96375; J2405; S0028

== ENCOUNTER 2023-04-17 13:45 | Emergency (ER) | payer OTHER ==
[2023-04-17] MEDS ORDERED: Ibuprofen 200 MG TAB ONE (16:37)
[2023-04-17] MEDS ORDERED: Metoclopramide HCl 10 MG TAB ONE (16:38)
== END 2023-04-17 16:43 | disposition home or self-care (01) ==
LOC: ERS 13:45
DX: G43.909 Migraine, unspecified, not intractable, without status migrainosus (principal); I10 Essential (primary) hypertension; Z75.8 Other problems related to medical facilities and other health care
CPT/HCPCS: 99283

== ENCOUNTER 2023-08-09 10:01 | Emergency (ER) | payer OTHER, MEDICAID ==
[2023-08-09] MEDS ORDERED: Acetaminophen 500 MG TAB ONE (10:48)
[2023-08-09] MEDS ORDERED: Ibuprofen 200 MG TAB ONE (10:48)
[2023-08-09] MEDS ORDERED: Metoclopramide HCl 10 MG TAB ONE (10:50)
[2023-08-09 11:24] LABS: Bacteria/HPF None Seen HPF (None Seen); Bilirubin Negative (Negative); Blood, Urine Negative (Negative); CAUTI Indications for Culture Dysuria,urgency,freq; Clarity Clear (Clear); Glucose, Urine (Dipstick) Normal (Negative); Ketone, Urine Negative (Negative); Leukocyte Negative Leu/uL (Negative); Nitrite Negative (Negative); Protein, Urine (Dipstick) Negative (Neg-Trace); RBC/HPF 0-3 HPF (0-3); Specific Gravity, Urine 1.002 (1.002-1.036); Squamous Epithelial 0-3 HPF (0-3); Urobilinogen Normal mg/dL (Less than 2); WBC/HPF None Seen HPF (0-3)
[2023-08-09 11:26] LABS: Urine Culture Reflex No No
== END 2023-08-09 11:54 | disposition home or self-care (01) ==
LOC: ERS 10:01
DX: G43.909 Migraine, unspecified, not intractable, without status migrainosus (principal); I10 Essential (primary) hypertension; K21.9 Gastro-esophageal reflux disease without esophagitis; E78.00 Pure hypercholesterolemia, unspecified; Z76.0 Encounter for issue of repeat prescription; Z75.8 Other problems related to medical facilities and other health care; Z79.899 Other long term (current) drug therapy
CPT/HCPCS: 81001; 99283

== ENCOUNTER 2023-09-23 23:15 | Inpatient (IN) | payer MEDICAID, OTHER ==
[2023-09-23 23:55] LABS: #Basophils Less than 0.03 10x3/uL (0.0-0.2); %Basophils 0.3 % (0.0-1.0); %Eosinophils 1.3 % (0.0-10.0); %Lymphocytes 46.7 % (21.0-51.0); %Monocytes 8.4 % (0.0-10.0); %Neutrophils 43.1 % (42.0-75.0); Hematocrit 35.7 % (36.0-47.0); Hemoglobin 12.5 g/dL (12.0-16.0); Mean Corpuscular Hemoglobin 29.8 pg (27.0-31.0); Mean Corpuscular Volume 85.2 fL (78.0-98.0); Mean Platelet Volume 9.8 fL (7.4-10.4); Platelet Count 159 10x3/uL (130-400); RBC Distribution Width 12.2 % (11.5-14.5); Red Blood Cell (RBC) Count 4.19 mill/uL (4.20-5.40)
[2023-09-24 00:14] LABS: ALT (SGPT) 26 U/L (8-55); AST (SGOT) 32 U/L (5-34); Albumin 3.8 g/dL (3.4-4.8); Alkaline Phosphatase 92 U/L (40-110); Anion Gap 13 mmol/L (10-20); BUN (Urea Nitrogen) 20 mg/dL (9.8-20.1); Bilirubin, Total 0.3 mg/dL (0.2-1.2); Calc. Creatinine Clearance 0 mL/min (70-130); Carbon Dioxide 24 mmol/L (23-31); Chloride 103 mmol/L (98-107); Estimated GFR 70; Globulin 2.8 g/dL (2.4-3.5); Glucose 94 mg/dL (83-110); Lipase 38 U/L (8-78); Magnesium 1.9 mg/dL (1.6-2.6); Potassium 4.6 mmol/L (3.5-5.1); Protein, Total 6.6 g/dL (5.8-8.1); Sodium 135 mmol/L (136-145)
[2023-09-24 00:20] LABS: Troponin I Less than 0.010 ng/mL (< 0.028)
[2023-09-24 02:02] LABS: Bacteria/HPF None Seen HPF (None Seen); Bilirubin Negative (Negative); Blood, Urine Negative (Negative); CAUTI Indications for Culture Fever or rigors; Clarity Clear (Clear); Glucose, Urine (Dipstick) Normal (Negative); Ketone, Urine Negative (Negative); Leukocyte Negative Leu/uL (Negative); Nitrite Negative (Negative); Protein, Urine (Dipstick) Negative (Neg-Trace); RBC/HPF None Seen HPF (0-3); Specific Gravity, Urine 1.003 (1.002-1.036); Squamous Epithelial None Seen HPF (0-3); Urine Culture Reflex No No; Urobilinogen Normal mg/dL (Less than 2); WBC/HPF 0-3 HPF (0-3)
[2023-09-24] MEDS ORDERED: Ondansetron ODT 4 MG TAB PO PRN (02:13)
[2023-09-24] MEDS: hydrALAZINE 20 MG/ML VIAL SLOW IVP PRN (05:03)
[2023-09-24 05:06] VITALS: BMI 22.8
[2023-09-24] MEDS: Enoxaparin 40 MG (0.4 mL) SYRINGE SC SCH (08:25)
[2023-09-24] MEDS: Pantoprazole DR 40 MG TAB PO SCH (08:25)
[2023-09-24] MEDS: Acetaminophen 325 MG TAB PO PRN (08:25)
[2023-09-24] MEDS: Meclizine HCl 25 MG TAB PO SCH (08:25)
[2023-09-24] MEDS ORDERED: Meclizine HCl 25 MG TAB PO SCH (09:00)
[2023-09-24] MEDS ORDERED: NIFEdipine 10 MG CAP PO SCH (09:00)
[2023-09-24] MEDS: CeleCOXIB 100 MG CAP PO SCH (09:30)
[2023-09-24] MEDS: NIFEdipine XL 30 MG ER.TAB PO SCH ×2 (10:15→20:32)
[2023-09-24] MEDS: Ibuprofen 600 MG TAB PO PRN (11:25)
[2023-09-24 12:44] VITALS: BMI 22.8
[2023-09-24] MEDS: Rosuvastatin 20 MG TAB PO SCH (20:32)
[2023-09-24] MEDS: traZODone HCl 50 MG TAB PO SCH (20:32)
[2023-09-25] MEDS: NIFEdipine XL 30 MG ER.TAB PO SCH (08:47)
[2023-09-25 09:42] VITALS: BP 131/60; TEMP 97.7
== END 2023-09-25 10:54 | disposition home or self-care (01) | DRG 305 ==
LOC: ERS 23:15 → CCU 09-24 03:09 → 2NO 09-25 09:31
PROVIDERS: ADMIT Student in an Organized Health Care Education/Training Program; ATTEND Student in an Organized Health Care Education/Training Program
DX: I16.0 Hypertensive urgency (principal); R00.1 Bradycardia, unspecified; I95.1 Orthostatic hypotension; E78.5 Hyperlipidemia, unspecified; G43.909 Migraine, unspecified, not intractable, without status migrainosus; K21.9 Gastro-esophageal reflux disease without esophagitis; Z79.899 Other long term (current) drug therapy; Z90.710 Acquired absence of both cervix and uterus
CPT/HCPCS: 36415; 70450; 71045; 80053; 81001; 83690; 83735; 83880; 84443; 84484; 85025; 93005; J0360; J1650

== ENCOUNTER 2023-11-20 08:15 | Emergency (ER) | payer MEDICARE, OTHER ==
[2023-11-20 09:42] LABS: #Basophils Less than 0.03 10x3/uL (0.0-0.2); %Basophils 0.4 % (0.0-1.0); %Lymphocytes 37.9 % (21.0-51.0); %Monocytes 9.7 % (0.0-10.0); Hematocrit 35.7 % (36.0-47.0); Hemoglobin 12.5 g/dL (12.0-16.0); Mean Corpuscular Hemoglobin 29.2 pg (27.0-31.0); Mean Corpuscular Volume 83.4 fL (78.0-98.0); Mean Platelet Volume 9.9 fL (7.4-10.4); Platelet Count 235 10x3/uL (130-400); RBC Distribution Width 12.5 % (11.5-14.5); Red Blood Cell (RBC) Count 4.28 mill/uL (4.20-5.40)
[2023-11-20 10:03] LABS: ALT (SGPT) 24 U/L (8-55); AST (SGOT) 32 U/L (5-34); Alkaline Phosphatase 71 U/L (40-110); Anion Gap 13 mmol/L (10-20); BUN (Urea Nitrogen) 15 mg/dL (9.8-20.1); Bilirubin, Total 0.4 mg/dL (0.2-1.2); Calc. Creatinine Clearance 0 mL/min (70-130); Calcium 9.5 mg/dL (7.8-10.44); Carbon Dioxide 23 mmol/L (23-31); Chloride 106 mmol/L (98-107); Estimated GFR 73; Glucose 99 mg/dL (83-110); Potassium 3.9 mmol/L (3.5-5.1); Sodium 138 mmol/L (136-145)
[2023-11-20 10:04] LABS: Troponin I Less than 0.010 ng/mL (< 0.028)
[2023-11-20] MEDS ORDERED: Ketorolac Tromethamine 30 MG (1 mL) VIAL ONE (10:25)
[2023-11-20] MEDS ORDERED: Iopamidol-370 76% 500 ML MDV (1 ML CHARGE) ONE (12:02)
== END 2023-11-20 10:29 | disposition home or self-care (01) ==
LOC: ERS 08:15
DX: R51.9 Headache, unspecified (principal); M54.9 Dorsalgia, unspecified; R07.9 Chest pain, unspecified; I10 Essential (primary) hypertension; E78.00 Pure hypercholesterolemia, unspecified; K21.9 Gastro-esophageal reflux disease without esophagitis; Z79.899 Other long term (current) drug therapy
CPT/HCPCS: 70450; 71275; 74174; 80053; 84484; 85025; 86850; 86900; 86901; 93005; 96374; 99284; J1885; Q9967; 36415

== ENCOUNTER 2024-01-22 11:25 | Outpatient (CLI) | payer OTHER | END 2024-01-22 11:26 | disposition home or self-care (01) | LOC: BICMAMMO 11:25 | PROVIDERS: ATTEND Family Medicine | DX: Z12.31 Encounter for screening mammogram for malignant neoplasm of breast (principal) | CPT/HCPCS: 77063; 77067 ==

== ENCOUNTER 2024-10-02 08:51 | Outpatient (CLI) | payer OTHER ==
[2024-10-02] MEDS ORDERED: Iopamidol 370 76% 100 ML VIAL ONE (11:32)
[2024-10-02] MEDS ORDERED: GASTROGRAFIN 30 ML BOT ONE (11:32)
== END 2024-10-02 08:52 | disposition home or self-care (01) ==
LOC: CT 08:51
PROVIDERS: ATTEND Family Medicine
DX: R10.9 Unspecified abdominal pain (principal); R63.4 Abnormal weight loss; K83.8 Other specified diseases of biliary tract; N13.30 Unspecified hydronephrosis; S32.049A Unspecified fracture of fourth lumbar vertebra, initial encounter for closed fracture; S22.079A Unspecified fracture of T9-T10 vertebra, initial encounter for closed fracture
CPT/HCPCS: 74177; Q9963; Q9967

== ENCOUNTER 2024-12-31 06:16 | Emergency (ER) | payer OTHER ==
[2024-12-31 06:59] LABS: #Basophils Less than 0.03 10x3/uL (0.0-0.2); #Eosinophils 0.08 10x3/uL (0.0-0.7); #Monocytes 0.41 10x3/uL (0.11-0.59); #Neutrophils 1.90 10x3/uL (1.40-6.50); %Basophils 0.5 % (0.0-1.0); %Eosinophils 1.8 % (0.0-10.0); %Lymphocytes 45.1 % (21.0-51.0); %Monocytes 9.3 % (0.0-10.0); %Neutrophils 43.1 % (42.0-75.0); Hematocrit 35.9 % (36.0-47.0); Hemoglobin 11.9 g/dL (12.0-16.0); Mean Corpuscular Hemoglobin 28.7 pg (27.0-31.0); Mean Corpuscular Volume 86.7 fL (78.0-98.0); Platelet Count 228 10x3/uL (130-400); Red Blood Cell (RBC) Count 4.14 mill/uL (4.20-5.40); White Blood Cell (WBC) Count 4.41 10x3/uL (4.8-10.8)
[2024-12-31 07:16] LABS: ALT (SGPT) 25 U/L (Less than 34); AST (SGOT) 40 U/L (11-34); Albumin 4.2 g/dL (3.1-4.5); Alkaline Phosphatase 95 U/L (40-110); Anion Gap 13 mmol/L (10-20); BUN (Urea Nitrogen) 13 mg/dL (9.8-20.1); Bilirubin, Total 0.2 mg/dL (0.3-1.2); Calc. Creatinine Clearance 0 mL/min (70-130); Calcium 9.4 mg/dL (7.8-10.44); Carbon Dioxide 23 mmol/L (23-31); Chloride 107 mmol/L (98-107); Globulin 2.9 g/dL (2.4-3.5); Glucose 89 mg/dL (83-110); Lipase 54 U/L (8-78); Potassium 4.2 mmol/L (3.5-5.1); Sodium 139 mmol/L (136-145)
[2024-12-31 08:26] LABS: Bacteria/HPF None Seen HPF (None Seen); CAUTI Indications for Culture < 2yrs of age; Glucose, Urine (Dipstick) Normal (Negative); Leukocyte 250 Leu/uL (Negative); Protein, Urine (Dipstick) Negative (Neg-Trace); RBC/HPF 0-3 HPF (0-3); Specific Gravity, Urine 1.015 (1.002-1.036)
[2024-12-31 08:28] LABS: Urine Culture Reflex Yes Yes
[2024-12-31] MEDS ORDERED: Ketorolac Tromethamine 30 MG (1 mL) VIAL ONE (08:35)
[2024-12-31] MEDS ORDERED: Iopamidol-370 76% 500 ML MDV (1 ML CHARGE) ONE (14:28)
== END 2024-12-31 09:40 | disposition home or self-care (01) ==
LOC: ERS 06:16
DX: R29.810 Facial weakness (principal); R42 Dizziness and giddiness; I10 Essential (primary) hypertension; R29.702 NIHSS score 2
CPT/HCPCS: 70450; 71045; 71275; 74174; 80053; 81001; 83690; 83880; 84484; 85025; 87086; 93005; 96374; J1885; Q9967